=== PATIENT | female | born 1955 | race Caucasian/White ===

== ENCOUNTER 2024-03-20 12:25 | Outpatient (CLI) | payer MEDICARE, MEDICAID, SELFPAY ==
[2024-03-20 13:33] LABS: Thyroid Stimulating Hormone 0.488 uIU/mL (0.465-4.680)
[2024-03-20 14:05] LABS: Hemoglobin A1C 6.8 % (<5.7)
[2024-03-20 14:29] LABS: Free T4 Free Thyroxine 1.24 ng/dL (0.78-2.19)
[2024-03-24 06:49] LABS: Triiodothyronine T3 Free 2.8 pg/mL (2.3-4.2)
== END 2024-03-20 12:26 | disposition home or self-care (01) ==
LOC: ANHLAB 12:34
PROVIDERS: PCP Physician Assistant; Visit Provider Physician Assistant
DX: E03.9 Hypothyroidism, unspecified (principal); E11.9 Type 2 diabetes mellitus without complications
CPT/HCPCS: 36415; 83036; 84439; 84443; 84481

== ENCOUNTER 2024-09-16 09:23 | Outpatient (CLI) | payer MEDICARE, MEDICAID, SELFPAY ==
--- NOTE | ~2024-09-16 | DEXA_ITS ---
Bone Density Report Name: COLLEEN FALLON Age: 69 Sex: Female Ethnicity: White Date of : 1955 Indication: postmenopausal; screening for osteoporosis; rheumatoid arthritis; Referring Provider: SHANAE, REESE Rogers Study: Bone densitometry was performed. Exam Date: September 16, 2024 Accession number: [id number] Bone Density: Region BMD T-score Z-score Classification AP Spine(L1-L4) 0.818 -2.1 -0.2 Osteopenia Femoral Neck (Left) 0.626 -2.0 -0.4 Osteopenia Total Hip (Left) 0.885 -0.5 0.9 Normal Femoral Neck (Right) 0.593 -2.3 -0.7 Osteopenia Total Hip (Right) 0.865 -0.6 0.7 Normal Total Hip Mean 0.875 -0.6 0.8 Normal World Health Organization criteria for BMD impression classify patients as: Normal (T-score at or above -1.0), Osteopenia (T-score between -1.0 and -2.5), or Osteoporosis (T-score at or below -2.5). 10-year Fracture Risk(1): Major Osteoporotic Fracture 15% Hip Fracture 3.0% Reported Risk Factors: [place] (), Neck BMD=0.593, BMI=33.7, rheumatoid arthritis (1) FRAX(R) Version 3.08. Fracture probability calculated for an untreated patient. Fracture probability may be lower if the patient has received treatment. Clinical Information Provided by Patient: Has rheumatoid arthritis Has used the following medications: HRT (i.e. estrogen/hormone therapy), Vitamin D Has the following medical conditions: copd Patient maximum height was 64 Menopause Age: 47 No regular weight bearing exercise Drinks caffeinated beverages Onset of menses at age 15 Number of children 3 Impression: The patient has low bone mass, based on the Right Femoral Neck T-score. The patient has an estimated ten-year risk of hip fracture of 3% and an estimated ten-year risk of major fracture of 15%, based on the WHO FRAX algorithm. Discussion: BONE DENSITY IS LOW AT ONE OR MORE SKELETAL SITES. THE PATIENT'S BMD AND CLINICAL RISK FACTORS CONTRIBUTE TO THIS PATIENT'S INCREASED RISK OF FRACTURE. This patient's lowest T-score is low at one or more skeletal sites. It meets the World Health Organization's (WHO) criteria for ?low bone mass? (T-score between -1.0 and -2.5). The patient's 10-year risk of hip fracture as calculated by FRAX exceeds the threshold where pharmacological therapy is recommended by the National Osteoporosis Foundation (NOF). However, all treatment decisions require clinical judgment and consideration of individual patient factors, including patient preferences, comorbidities, previous drug use, risk factors not captured in the FRAX model (e.g., frailty, falls, vitamin D deficiency, increased bone turnover, interval significant decline in bone density) and possible under or overestimation of fracture risk by FRAX. The patient should follow a healthful lifestyle (good nutrition with adequate calcium and vitamin D, and appropriate weight-bearing exercise). Follow-Up: Consider a repeat BMD and Vertebral Fracture Assessment (VFA) exam in 2 years or sooner if medically necessary, to reassess this patient's status. Reported by: ROBERT on 09/16/2024 10:04:00 AM. Reviewed, dictated and finalized at location A.
--- NOTE | ~2024-09-16 | MM_ITS ---
EXAMINATION: MM screening elizabeth BI w molly HISTORY: Screening TECHNIQUE: Craniocaudal and mediolateral oblique 3-D tomosynthesis images were obtained and synthetic 2-D images were generated. CAD analysis was submitted and interpreted. COMPARISON: No prior mammogram is available for comparison at this institution. BREAST PARENCHYMAL COMPOSITION: Not Dense: The breasts are almost entirely fatty. FINDINGS: There is no evidence of suspicious mass, calcification, or architectural distortion to sugg est malignancy in either breast. There has been no suspicious interval change. IMPRESSION: 1. No mammographic evidence of malignancy. 2. Recommend routine screening mammography in one year. BI-RADS Category 1: Negative Reviewed, dictated and finalized at location A.
--- OUTSIDE RECORDS SUMMARY | 2024-09-16 10:15 | XMS_ITS | Clinical Summary ---
Author Organization [facility] Address [address] [place] [address] Care Team Providers Care Traveling Crane Operator Name Role Phone Octavio Heath DO Unavailable [phone] Gilbert Greenwood Primary Care Provider + August Grimes MD Unavailable [phone] Jamilah Sapp MD Unavailable [phone] Martin Gallardo MD Unavailable [phone] Allergies Active Allergy Reactions Criticality Noted Date Comments Ciprofloxacin Dizziness High 07/11/2022 Medications baclofen (LIORESAL) 10 mg tabletIndicat ions:MGUS (monoclonal gammopathy of unknown significance) 11/10/19 21 Active metFORMIN (GLUCOPHAGE) 500 mg tabletIndicat ions:MGUS (monoclonal gammopathy of unknown significance) metformin 500 mg tablet Active levothyroxine (SYNTHROID) 112 mcg tabletIndicat ions:MGUS (monoclonal gammopathy of unknown significance) levothyroxine 112 mcg tablet Active losartan (COZAAR) 100 mg tabletIndicat ions:MGUS (monoclonal gammopathy of unknown significance) losartan 100 mg tablet Active hydroCHLOROth iazide (MICROZIDE) 12.5 mg capsuleIndica tions:MGUS (monoclonal gammopathy of unknown significance) hydrochlorothiazide 12.5 mg capsule Active calcium carbonate-vit curry D3 (CALTRATE 600 + D) 1500 mg (600 mg elemental) -400 units per tabletIndicat ions:MGUS (monoclonal gammopathy of unknown significance) Calcium with Vitamin D 600 mg (1,500 mg)-400 unit tablet Active multivitamin tabletIndicat ions:MGUS (monoclonal gammopathy of unknown significance) Tab-A-Nitza tablet Active atorvastatin (LIPITOR) 10 mg tabletIndicat ions:MGUS (monoclonal gammopathy of unknown significance) Take 1 tablet (10 mg total) by mouth nightly 11/16/19 21 Active alcohol swabs pads, medicatedIndi cations:MGUS (monoclonal gammopathy of unknown significance) BD Alcohol Swabs Active cyclobenzapri ne (FLEXERIL) 10 mg tabletIndicat ions:MGUS (monoclonal gammopathy of unknown significance) cyclobenzaprine 10 mg tablet 04/01/18 70 Active HYDROcodone-a cetaminophen (NORCO) 5-325 mg per tabletIndicat ions:MGUS (monoclonal gammopathy of unknown significance) hydrocodone 5 mg-acetaminophen 325 mg tablet 04/01/18 70 Active OneTouch Delica Plus Lancet 33 gauge miscIndicatio ns:MGUS (monoclonal gammopathy of unknown significance) USE 1 LANCET TO CHECK GLUCOSE TWICE DAILY 10/03/19 21 Active latanoprost (XALATAN) 0.005 % ophthalmic solutionIndic ations:MGUS (monoclonal gammopathy of unknown significance) latanoprost 0.005 % eye drops INSTILL 1 DROP INTO EACH EYE AT BEDTIME DIRECTED Active nystatin creamIndicati ons:MGUS (monoclonal gammopathy of unknown significance) nystatin 100,000 unit/gram topical cream Active predniSONE (DELTASONE) 10 mg tabletIndicat ions:MGUS (monoclonal gammopathy of unknown significance) prednisone 10 mg tablet Active triamcinolone (KENALOG) 0.1 % creamIndicati ons:MGUS (monoclonal gammopathy of unknown significance) as needed Active ProAir HFA 90 mcg/actuation inhalerIndica tions:MGUS (monoclonal gammopathy of unknown significance) 12/16/19 21 Active busPIRone (BUSPAR) 5 mg tabletIndicat ions:MGUS (monoclonal gammopathy of unknown significance) 12/09/19 21 Active Tab-A-Nitza 400 mcg tabletIndicat ions:MGUS (monoclonal gammopathy of unknown significance) Take 1 tablet by mouth daily 12/14/19 21 Active medroxyPROGES TERone (PROVERA) 2.5 mg tabletIndicat ions:MGUS (monoclonal gammopathy of unknown significance) medroxyprogesterone 2.5 mg tablet Active estrogens, conjugated, (Premarin) vaginal creamIndicati ons:MGUS (monoclonal gammopathy of unknown significance) 0.5 g daily as needed Active estradioL (ESTRACE) 0.5 mg tabletIndicat ions:MGUS (monoclonal gammopathy of unknown significance) estradiol 0.5 mg tablet Active blood glucose diagnostic (OneTouch Verio test strips) stripIndicati ons:MGUS (monoclonal gammopathy of unknown significance) OneTouch Verio test strips CHECK GLUCOSE TWICE DAILY Active lancets 33 gauge miscIndicatio ns:MGUS (monoclonal gammopathy of unknown significance) OneTouch Delica Plus Lancet 33 gauge Active omega-3 fatty acids (LOVAZA) 1 gram capsule TAKE 2 CAPSULES BY MOUTH TWICE DAILY AFTER A MEAL Active Mounjaro 2.5 mg/0.5 mL pen injector injectionIndi cations:MGUS (monoclonal gammopathy of unknown significance) Inject 0.5 mL (2.5 mg total) under the skin 06/10/19 25 Active Breztri Aerosphere 160-9-4.8 mcg/actuation inhalerIndica tions:MGUS (monoclonal gammopathy of unknown significance) 04/09/19 25 Active Active Problems Problem Noted Date Diagnosed Date Anxiety 09/24/2022 Glaucoma of both eyes 09/24/2022 Sleep apnea 03/21/2022 Stage 3a chronic kidney disease 11/30/2020 MGUS (monoclonal gammopathy of unknown significa nce) 11/30/2020 Neuropathy 03/10/2019 Hepatomegaly 10/26/2018 Graves disease 12/05/2017 Postablative hypothyroidism 12/05/2017 Type 2 diabetes mellitus wit h diabetic nephropathy, without long-term current use of insulin 12/05/2017 Mass of thyroid gland 01/21/2017 Chronic obstructive pulmonary disease 08/12/2015 Hypertension 08/12/2015 Thyroid activity decreased 05/14/2014 Encounters Date Type Department Care Team Description 06/30/2024 11:00 AM CDT Office Visit [facility] Trans[facility] [address] [place] [address] Dru Ying DNP MGUS (monoclonal gammopathy of unknown significance) (Primary Dx) 06/30/2024 10:30 AM CDT Lab [facility] [address] [place] [address] MGUS (monoclonal gammopathy of unknown significance) from Last 3 Months Immunizations Immunization Administration Dates Next Due Influenza, Quadrivalent, Jayshree l Culture-based MDCK, Preservative Free, Antibiotic Free, Intramuscular 01/04/2021 Influenza, Quadrivalent, Rec ombinant, Egg Free, Preservative Free, Intramuscular 12/17/2019 Influenza, Quadrivalent, Spl it, Intramuscular 12/07/2019,12/25/2018,01/21/2017,01/18,12/27/2014 Influenza, Quadrivalent, Spl it, Preservative Free, Intramuscular 01/21/2018 Influenza, Trivalent, IM (MDV) 03/19/2014 Tdap 06/09/2019 Surgical History Surgery Date Site/Laterality Comments VA TUBOTUBAL ANASTATOMOSIS Oviductal Surgery Tubotubal Anastomosis - (Added by TW Conv) TUBAL LIGATION 04/01/1985 - 03/31/1986 Medical History Medical History Date Comments Hypertension Thyroid disease Chronic kidney disease Diabetes mellitus (HCC) Family History Medical History Relation Name Comments Lung cancer Father Family history of lung cancer - (Added by TW Conv) Diabetes Mother Family history of diabetes mellitus - (Added by TW Conv) Heart disease Mother Family history of cardiac disorder - (Added by TW Conv) Hypertension Mother Family history of hypertension - (Added by TW Conv) Relation Name Status Comments Father Mother Social History Tobacco Use Types Packs/Day Years Used Date Smoking Tobacco: Former Smokeless Tobacco: Never Comments Unknown Sex and Gender Information Value Date Recorded Sex Assigned at Not on file Legal Sex 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 Gender Identity Not on file Sexual Orientation Not on file Obstetrics History Last Filed Vital Signs Vital Sign Reading Time Taken Comments Blood Pressure 131/82 06/30/2024 10:49 AM CDT Pulse 78 06/30/2024 10:49 AM CDT Temperature 36.5 C (97.7 F) 06/30/2024 10:49 AM CDT Respiratory Rate 18 06/30/2024 10:49 AM CDT Oxygen Saturation 100% 06/30/2024 10:49 AM CDT Inhaled Oxygen Concentration - - Weight 92.3 kg (203 lb 6.4 oz) 06/30/2024 10:49 AM CDT Height 162.6 cm (5' 4) 01/10/2022 11:30 AM CDT Body Mass Index 34.91 01/10/2022 11:30 AM CDT Plan of Treatment Health Maintenance Due Date Last Done Comments Albumin Creatinine Ratio, Urine 1955 Colon Cancer Screening-Colonoscopy 1955 Depression Screening 1955 Fall Risk Assessment 1955 Hemoglobin A1C 1955 Hepatitis C Screening 1955 Dilated Eye Exam 1955 Foot Exam 1955 Lipid Panel 1955 Hepatitis B Screening 1975 Pneumococcal vaccine 65+ (1 of 2 - PCV) 1976 Zoster Vaccine (1 of 2) 2007 Well Visit 65+ 2022 Osteoporosis Screening-Bone Density Scan 02/01/2023 02/01/2021 Covid-19 Vaccine (2 - 2023-2 5 season) 2023 07/03/2020 Breast Cancer Screening-Mammogram 06/10/2024 06/11/2023, 05/11/2022, 02/01/2021, Additional history exists Influenza Vaccine (Season Ended) 2024 01/04/2021, 12/17/2019, 12/07/2019, Additional history exists eGFR 06/30/2025 06/30/2024, 04/05/2023, 01/09/2023, Additional history exists DTaP/Tdap/Td Vaccine (2 - Td or Tdap) 06/08/2029 06/09/2019 Procedures Procedure Name Priority Date/Time Associated Diagnosis Comments EGFR Routine 06/30/2024 10:39 AM CDT MGUS (monoclonal gammopathy of unknown significance) DIFFERENTIAL AUTO Routine 06/30/2024 10: 39 AM CDT MGUS (monoclonal gammopathy of unknown significance) CBC WITH AUTO DIFFERENTIAL Routine 06/30/2024 10:39 AM CDT MGUS (monoclonal gammopathy of unknown significance) COMPREHENSIVE METABOLIC PANEL Routine 06/30/2024 10:39 AM CDT MGUS (monoclonal gammopathy of unknown significance) IGA Routine 06/30/2024 10:39 AM CDT MGUS (monoclonal gammopathy of unknown significance) IGG Routine 06/30/2024 10:39 AM CDT MGUS (monoclonal gammopathy of unknown significance) IGM Routine 06/30/2024 10:39 AM CDT MGUS (monoclonal gammopathy of unknown significance) IMMUNOGLOBULIN FREE LIGHT CHAINS Routine 06/30/2024 10:39 AM CDT MGUS (monoclonal gammopathy of unknown significance) LACTATE DEHYDROGENASE Routine 06/30/2024 10:39 AM CDT MGUS (monoclonal gammopathy of unknown significance) PROTEIN ELECTROPHORESIS, WITH REFLEX, SERUM Routine 06/30/2024 10:39 AM CDT MGUS (monoclonal gammopathy of unknown significance) CLINICAL PATHOLOGY REPORT Routine 06/30/2024 10:39 AM CDT from Last 3 Months Results * (ABNORMAL) eGFR (06/30/2024 10:39 AM CDT) eGFR 52(L) >=60 mL/min/1. 73 m2 Comment: Interpretive Data Reference Interval Normal >/= 90 mL/min/1.73m2 Mildly decreased* 60 - 89 mL/min/1.73m2 Mildly to moderately decreased 45 - 59 mL/min/1.73m2 Moderately to severely decreased 30 - 44 mL/min/1.73m2 Severely decreased 15 - 29 mL/min/1.73m2 Kidney Failure < 15 mL/min/1.73m2 *Relative to young adult level Estimated glomerular filtration rate is determined by the 2020 CKD-EPI equation recommended by the National Kidney Foundation (A Unifying Approach to GFR Estimation: Recommendations of the NKF-ASK Task Force on Reassessing the Inclusion of Race in Diagnosing Kidney Disease, JASN 202). The CKD-EPI equation should not be used for patients with unstable renal function and has not been validated in children and those over 70. Current interpretive data was last reviewed 2021. Testing performed by: [facility] [place] [address] Blood 06/30/2024 10:3 9 AM CDT 06/30/2024 10:39 AM CDT us Martin Gallardo MD LAB BLOOD ORDERABLES Fin al Result [facility] [address] [address] Department [place] [address] * Differential, auto (06/30/2024 10:39 AM CDT) Neutrophil abs 5.19 1.50 - 6.50 K/cumm Comment:Testing performed by : [facility] [place] [address] Imm gran abs 0.00 0.00 - 0.10 K/cumm CERNER Comment:Testing performed by : [facility] [place] [address] Lymphocyte abs 2.83 0.80 - 3.30 K/cumm CERNER Comment:Testing performed by : [facility] [place] [address] Monocyte abs 0.50 0.20 - 0.80 K/cumm CERNER Comment:Testing performed by : [facility] [place] [address] Eosinophil abs 0.50 0.00 - 0.50 K/cumm CERNER Comment:Testing performed by : [facility] [place] [address] Basophil abs 0.00 0.00 - 0.10 K/cumm CERNER Comment:Testing performed by : [facility] [place] [address] Neutrophil pct 57.1 % CERNER Comment: Interpretive Data Percent cell count reference ranges are not reported, since discordance with absolute values may lead to misinterpretation of CBC data. Current Interpretive Data was last revised on 2017. Testing performed by: [facility] [place] [address] Imm gran pct 0.4 % CERNER Comment: Interpretive Data Percent cell count reference ranges are not reported, since discordance with absolute values may lead to misinterpretation of CBC data. Current Interpretive Data was last revised on 2017. Testing performed by: [facility] [place] [address] Lymphocyte pct 31.1 % CERKAYKAY Comment: Interpretive Data Percent cell count reference ranges are not reported, since discordance with absolute values may lead to misinterpretation of CBC data. Current Interpretive Data was last revised on 2017. Testing performed by: [facility] [place] [address] Monocyte pct 5.3 % CERKAYKAY Comment: Interpretive Data Percent cell count reference ranges are not reported, since discordance with absolute values may lead to misinterpretation of CBC data. Current Interpretive Data was last revised on 2017. Testing performed by: [facility] [place] [address] Eosinophil pct 5.8 % CERKAYKAY Comment: Interpretive Data Percent cell count reference ranges are not reported, since discordance with absolute values may lead to misinterpretation of CBC data. Current Interpretive Data was last revised on 2017. Testing performed by: [facility] [place] [address] Basophil pct 0.3 % CERKAYKAY Comment: Interpretive Data Percent cell count reference ranges are not reported, since discordance with absolute values may lead to misinterpretation of CBC data. Current Interpretive Data was last revised on 2017. Testing performed by: [facility] [place] [address] Blood 06/30/2024 10:3 9 AM CDT 06/30/2024 10:39 AM CDT us Martin Gallardo MD LAB BLOOD ORDERABLES Fin al Result [facility] [address] [address] Department [place] [address] * (ABNORMAL) Immunoglobulin free light chains (06/30/2024 10:39 AM CDT) [place]/Lambda ratio 0.50 0.26 - 1.65 [place] free light chain 2.44(H) 0.33 - 1.94 mg/dL S[facility] Comment: Interpretive Data The Michael Ig [place] FLC assay procedure was used. Results from different manufacturers or methods may not be comparable. Serial testing should be performed using the same method. Lambda free light chain 5.40(H) 0.57 - 2.63 mg/dL [facility] Comment: Interpretive Data The Michael Ig Lambda FLC assay procedure was used. Results from different manufacturers or methods may not be comparable. Serial testing should be performed using the same method. Blood 06/30/2024 10:3 9 AM CDT 06/30/2024 11:47 AM CDT Martin Gallardo MD LAB BLOOD ORDERABLES Fin al Result [facility] [address] [address] Department of Laboratories [place], [place] [id number] * CBC with auto differential (06/30/2024 10:39 AM CDT) WBC 9.10 3.80 - 9.90 K/cumm Comment:Testing performed by : [facility] [place] [address] Hgb 14.6 11.9 - 15.5 g/dL S[facility]H Comment:Testing performed by : [facility] [place] [address] Hct 44.5 35.6 - 45.5 % SINGH Comment:Testing performed by : [facility] [place] [address] Plt 269 150 - 400 K/cumm CERKAYKAY Comment:Testing performed by : [facility] [place] [address] MPV 10.5 9.1 - 12.3 fL [facility] Comment:Testing performed by : [facility] [place] [address] RBC 4.98 3.90 - 5.20 M/cumm SINGH Comment:Testing performed by : [facility] [place] [address] MCV 89.4 81.3 - 96.4 fL [facility] Comment:Testing performed by : [facility] [place] [address] MCH 29.3 27.1 - 33.3 pg [facility] Comment:Testing performed by : [facility] [place] [address] MCHC 32.8 32.3 - 35.7 g/dL [facility] Comment:Testing performed by : [facility] [place] [address] RDW CV 14.4 11.1 - 14.9 % [facility] Comment:Testing performed by : [facility] [place] [address] RDW SD 47.1 35.7 - 48.1 fL [facility] Comment:Testing performed by : [facility] [place] [address] NRBC abs 0.00 0.00 - 0.01 K/cumm [facility] Comment:Testing performed by : [facility] [place] [address] ANC Prelim 5.19 1.50 - 6.50 K/cumm [facility] Comment: Interpretive Data The rapid ANC is a preliminary automated count and may vary from the final ANC (Neut Abs) reported in the WBC differential that follows. Current interpretive data was last revised 2024. Testing performed by: [facility] [place] [address] Blood 06/30/2024 10:3 9 AM CDT 06/30/2024 10:39 AM CDT us Martin Gallardo MD LAB BLOOD ORDERABLES Trever miguel angel Result - Final [facility] [address] [address] Department [place] [address] * (ABNORMAL) Protein electrophoresis with reflex, serum with interpretation (06/30/2024 10:39 AM CDT) Protein, sr 7.8 6.2 - 8.2 g/dL Albumin 4.6 3.2 - 5.0 g/dL C[facility]AYKAY Alpha-1 globulin 0.3 0.2 - 0.4 g/dL [facility] Alpha-2 globulin 0.9 0.5 - 1.0 g/dL C[facility] CH Beta-1 globulin 0.5 0.3 - 0.6 g/dL CERNER CH Beta-2 globulin 0.4 0.2 - 0.6 g/dL C[facility] CH Gamma globulin 1.1 0.5 - 1.7 g/dL C[facility] CH Rstr Pk Gamma 0.5(H) 0.0 - 0.0 g/dL [facility] CH SPEP interp See Cl Path Rpt C[facility] CH Blood 06/30/2024 10:3 9 AM CDT 06/30/2024 11:47 AM CDT Martin Gallardo MD LAB BLOOD ORDERABLES Fin al Result Performing Organization Address City/[facility] Co de Phone Number [facility] [address] [address] [place] [address] * Lactate dehydrogenase (LD) (06/30/2024 10:39 AM CDT) Lactate dehydrogenase (LDH) 162 100 - 250 Units/L Comment:Testing performed by : [facility] at [facility], [place] [address] Blood 06/30/2024 10:3 9 AM CDT 06/30/2024 10:39 AM CDT Martin Gallardo MD LAB BLOOD ORDERABLES Fin al Result Performing Organization Address City/[facility]/ZIP Co de Phone Number [facility] [address] [address] Department [place] [address] * IgA (06/30/2024 10:39 AM CDT) Immunoglobulin A 223 70 - 400 mg/dL Blood 06/30/2024 10:3 9 AM CDT 06/30/2024 11:47 AM CDT Martin Gallardo MD LAB BLOOD ORDERABLES Fin al Result [facility] [address] [address] [facility] [place] [address] * IgM (06/30/2024 10:39 AM CDT) Pathologist [facility] Immunoglobulin M 89 40 - 150 mg/dL Blood 06/30/2024 10:3 9 AM CDT 06/30/2024 11:47 AM CDT Martin Gallardo MD LAB BLOOD ORDERABLES Fin al Result Performing Organization Address [facility] de Phone Number [facility] [address] [address] [facility] [place] [address] * IgG (06/30/2024 10:39 AM CDT) Pathologist [facility] Immunoglobulin G 1,106 700 - 1,600 mg/dL Blood 06/30/2024 10:3 9 AM CDT 06/30/2024 11:47 AM CDT Martin Gallardo MD LAB BLOOD ORDERABLES Fin al Result Performing Organization Address [facility] Phone Number [facility] [address] [address] [facility] [place] [address] * (ABNORMAL) Comprehensive metabolic panel (06/30/2024 10:39 AM CDT) [facility] Sodium 138 135 - 145 mmol/L Comment:Testing performed by : [facility] [place] [address] Potassium, pl 3.9 3.3 - 4.9 mmol/L C[facility]ER CH Comment:Testing performed by : [facility] [place] [address] Chloride 101 97 - 110 mmol/L CERNER CH Comment:Testing performed by : [facility] [place] [address] CO2 25 22 - 32 mmol/L CERNER CH Comment:Testing performed by : [facility] [place] [address] Anion gap 12 2 - 15 mmol/L CERNER CH Comment:Testing performed by : [facility] [place] [address] BUN 19 6 - 25 mg/dL C[facility]ER CH Comment:Testing performed by : [facility] [place] [address] Creatinine 1.16(H) 0.60 - 1.10 mg/dL C[facility] CH Comment:Testing performed by : [facility] [place] [address] Glucose 142 70 - 199 mg/dL C[facility] CH Comment: Interpretive Data Fasting glucose >/= 126 mg/dl is diagnostic for diabetes. Fasting is defined as no caloric intake for at least 8 hours. Fasting glucose between 100 mg/dl to 125 mg/dl is diagnostic of prediabetes. In a patient with classic symptoms of hyperglycemia or hyperglycemic crisis, a random glucose >/= 200 mg/dl is diagnostic for diabetes. In the absence of unequivocal hyperglycemia, results should be confirmed by repeat testing. The classification and Diagnosis of Diabetes Diabetes Care 202; 46: S19-S40. Current interpretive data was last revised 2022. Testing performed by: [facility] [place] [address] Calcium 9.5 8.5 - 10.3 mg/dL CERNER CH Comment:Testing performed by : [facility] [place] [address] Bilirubin, total 0.5 0.1 - 1.2 mg/dL CERNER CH Comment:Testing performed by : [facility] [place] [address] Protein, pl 7.8 6.5 - 8.5 g/dL CERNER CH Comment:Testing performed by : [facility] [place] [address] Albumin 4.6 3.5 - 5.0 g/dL CERNER CH Comment:Testing performed by : [facility] [place] [address] Alk phos 112 40 - 130 Units/L CERNER CH Comment:Testing performed by : [facility] [place] [address] ALT 22 7 - 45 Units/L C[facility]ER CH Comment:Testing performed by : [facility] [place] [address] AST 25 10 - 45 Units/L C[facility]ER CH Comment:Testing performed by : [facility] [place] [address] Blood 06/30/2024 10:3 9 AM CDT 06/30/2024 10:39 AM CDT us Martin Gallardo MD LAB BLOOD ORDERABLES Fin al Result Performing Organization Address City/State/[facility] Co de Phone Number [facility] [address] [place] [address] * Clinical pathology report (06/30/2024 10:39 AM CDT) Miscellaneous 06/30/2024 10: 39 AM CDT 07/02/2024 8:52 AM CDT Narrative 07/03/2024 4:10 PM CDT EPIC results best viewed via link to PDF [facility] Department of Pathology [address] [place] [id number] Final Report Note to Patients: This report may contain a detailed description of human tissue sent by a health care provider to the laboratory for pathologic evaluation. The content of this report is essential for diagnosis and may provide important critical findings. This information may be unfamiliar to patients to review without a medical professional present. It is advised that the patient review this report in the presence of a health care provider who can answer questions and explain the details. Patient Name: DINORA DARNELL [address]: [address] [place] [address] Gender: F : 1955 (Age: 69) Service: Location: N : [id number] [facility] #: [id number] Patient Type: Ancillary Taken: 06/30/2024 Received: 07/02/2024 Accessioned: 07/02/2024 Physician(s): Martin Glalardo M.D. Specimen(s) Received A: Blood (serum) Serum Protein Electrophoresis with Immunofixation/ImmunotypingReported:07/03/2024 Interpretation: Serum Protein Electrophoresis: 0.5 g/dl paraprotein. Serum Protein Immunofixation: IgG lambda. Comment: Serum Protein Electrophoresis: A 0.5 g/dl paraprotein is identified. Serum Protein Immunofixation: Examination of G, A and M heavy chains as well as kappa and lambda light chains reveals an IgG lambda band. See Epic and/or separate report for protein fraction table. Gene Aguilar MD PhDReport Electronically Reviewed and Signed Out By Gene Aguilar MD PhD 07/03/2024 16:07:12 The performance characteristics of some immunohistochemical stains, fluorescence in-situ hybridization tests and immunophenotyping by flow cytometry cited in this report (if any) were determined by the Surgical Pathology Department at [facility] as part of an ongoing software quality analyst program and in compliance with federally mandated regulations drawn from the Clinical Laboratory Improvement Act of 1988 (CLIA '88). Some of these tests rely on the use of analyte specific reagents and are subject to specific labeling requirements by the US Food and Drug Administration. Such diagnostic tests may only be performed in a facility that is certified by the Department of Health and Human Services as a high complexity laboratory under CLIA '88. The FDA has determined that such clearance or approval is not necessary. This test is used for clinical purposes. It should not be regarded as investigational or for research. Nevertheless, federal rules concerning the medical use of analyte specific reagents require that the following disclaimer be attached to the report: This test was developed and its performance characteristics determined by the Surgical Pathology Department [facility]. It has not been cleared or approved by the U. S. Food and Drug Administration. REPORT IMAGES AND SCANNED DOCUMENTS, IF INCLUDED, ONLY VIEWABLE IN PDF VERSION OF REPORTe o Martin Gallardo MD LAB PATHOLOGY ORDERABLES Final Result from Last 3 Months Insurance IDPA [facility] MEDICARE ADVANTAGE [id number] [place] [address] UHC MEDICARE ADVANTAGE [facility] Care Teams Traveling Crane Operator Relationship Specialty Start Date End Date Gilbert Greenwood PA [address] [place] [address] PCP - General Internal Medicine 11/18/20 Octavio Heath DO Referring Physician Nephrology 11/18/20 August Grimes MD [address] [place] [address] Consulting Physician Endocrinology 11/30/20 Jamilah Sapp MD [address] [place] [address] Referring Physician Gastroenterology 07/11/22 Martin Gallardo MD [address] [facility] [address] [place] [address] Consulting Physician Medical Oncology 07/01/23
--- OUTSIDE RECORDS SUMMARY | 2024-09-16 10:15 | XMS_ITS | Referral Summary ---
Author Organization [facility] Address [facility] [place] [address] Care Team Providers Care Claims Configuration Analyst Name Role Phone Octavio Heath DO Unavailable [phone] Gilbert Greenwood Primary Care Provider + August Grimes MD Unavailable [phone] Jamilah Sapp MD Unavailable [phone] Martin Gallardo MD Unavailable [phone] Encounters Date Type Department Care Team Description 06/30/2024 11:00 AM CDT Office Visit [facility] [address] [place] [id number] Dru Ying DNP MGUS (monoclonal gammopathy of unknown significance) (Primary Dx) 06/30/2024 10:30 AM CDT Lab [facility] [address] [place] [address] MGUS (monoclonal gammopathy of unknown significance) from Last 3 Months Allergies Active Allergy Reactions Criticality Noted Date [...] tions:MGUS (monoclonal gammopathy of unknown significance) 12/16/19 Active busPIRone (BUSPAR) 5 mg tabletIndicat ions:MGUS (monoclonal gammopathy of unknown significance) 12/09/19 Active Tab-A-Nitza 400 mcg tabletIndicat ions:MGUS (monoclonal gammopathy of unknown significance) Take 1 tablet by mouth daily 12/14/19 Active medroxyPROGES TERone (PROVERA) 2.5 mg tabletIndicat [...] (2.5 mg total) under the skin 06/10/19 Active Breztri Aerosphere 160-9-4.8 mcg/actuation inhalerIndica tions:MGUS (monoclonal gammopathy of unknown significance) 04/09/19 Active Active Problems Problem Noted Date Diagnosed [...] 08/12/2015 Hypertension 08/12/2015 Thyroid activity decreased 05/14/2014 Immunizations Immunization Administration Dates Next Due Influenza, Quadrivalent, Jayshree l Culture-based MDCK, Preservative Free, Antibiotic Free, Intramuscular 01/04/2021 Influenza, Quadrivalent, Rec ombinant, Egg Free, Preservative Free, Intramuscular 12/17/2019 Influenza, Quadrivalent, Spl it, Intramuscular 12/07/2019,12/25/2018,01/21/2017,01/18,12/27/2014 Influenza, Quadrivalent, Spl it, Preservative Free, Intramuscular 01/21/2018 Influenza, Trivalent, IM (MDV) 03/19/2014 Tdap 06/09/2019 Social History Tobacco Use Types Packs/Day Years Used Date Smoking Tobacco: Former Smokeless Tobacco: Never Comments Unknown Sex and Gender Information Value Date Recorded Sex Assigned at Not on file 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 Testing performed by: [facility] [place] [address] Blood 06/30/2024 10:3 9 AM CDT 06/30/2024 10:39 AM CDT us Martin Gallardo MD LAB BLOOD ORDERABLES Fin al Result SINGH HURST [address] Department [place] [address] * Differential, auto (06/30/2024 10:39 AM CDT) Neutrophil abs 5.19 1.50 - 6.50 K/cumm Comment:Testing performed by : [facility] [place] [address] Imm gran abs 0.00 0.00 - 0.10 K/cumm CERKAYKAY Comment:Testing performed by : [facility] [place] [address] Lymphocyte abs 2.83 0.80 - 3.30 K/cumm SINGH Comment:Testing performed by : [facility] [place] [address] Monocyte abs 0.50 0.20 - 0.80 K/cumm CERKAKYAY Comment:Testing performed by : [facility] [place] [address] Eosinophil abs 0.50 0.00 - 0.50 K/cumm SINGH Comment:Testing performed by : [facility] [place] [address] Basophil abs 0.00 0.00 - 0.10 K/cumm SINGH Comment:Testing performed by : [facility] [place] [address] Neutrophil pct 57.1 % SINGH Comment: Interpretive Data Percent cell count reference ranges are not reported, since discordance with absolute values may lead to misinterpretation of CBC data. Current Interpretive Data was last revised on 2017. Testing performed by: [facility] [place] [address] Imm gran pct 0.4 % CERNER Comment: Interpretive Data Percent cell count reference ranges are not reported, since discordance with absolute values may lead to misinterpretation of CBC data. Current Interpretive Data was last revised on 2017. Testing performed by: [facility] [place] [address] Lymphocyte pct 31.1 % CERNER Comment: Interpretive Data Percent cell count reference ranges are not reported, since discordance with absolute values may lead to misinterpretation of CBC data. Current Interpretive Data was last revised on 2017. Testing performed by: [facility] [place] [address] Monocyte pct 5.3 % CERNER Comment: Interpretive Data Percent cell count reference ranges are not reported, since discordance with absolute values may lead to misinterpretation of CBC data. Current Interpretive Data was last revised on 2017. Testing performed by: [facility] [place] [address] Eosinophil pct 5.8 % CERNER Comment: Interpretive Data Percent cell count reference ranges are not reported, since discordance with absolute values may lead to misinterpretation of CBC data. Current Interpretive Data was last revised on 2017. Testing performed by: [facility] [place] [address] Basophil pct 0.3 % CERNER Comment: Interpretive Data Percent cell count reference ranges are not reported, since discordance with absolute values may lead to misinterpretation of CBC data. Current Interpretive Data was last revised on 2017. Testing performed by: [facility] [place] [address] Blood 06/30/2024 10:3 9 AM CDT 06/30/2024 10:39 AM CDT us Martin Gallardo MD LAB BLOOD ORDERABLES Fin al Result SINGH HURST [address] [address] Department [place] [address] * (ABNORMAL) Immunoglobulin free light chains (06/30/2024 10:39 AM CDT) [facility] Tamaroa/Lambda ratio 0.50 0.26 - 1.65 Tamaroa free light chain 2.44(H) 0.33 - 1.94 mg/dL SINGH HURST Comment: Interpretive Data The Michael Ig Tamaroa FLC assay procedure was used. Results from different manufacturers or methods may not be comparable. Serial testing should be performed using the same method. Lambda free light chain 5.40(H) 0.57 - 2.63 mg/dL SINGH HURST Comment: Interpretive Data The Michael Ig Lambda FLC assay procedure was used. Results from different manufacturers or methods may not be comparable. Serial testing should be performed using the same method. Blood 06/30/2024 10:3 9 AM CDT 06/30/2024 11:47 AM CDT Martin Gallardo MD LAB BLOOD ORDERABLES Fin al Result SINGH HURST [address] [address] Department [place] [address] * CBC with auto differential (06/30/2024 10:39 AM CDT) [facility] WBC 9.10 3.80 - 9.90 K/cumm Comment:Testing performed by : [facility] [place] [address] Hgb 14.6 11.9 - 15.5 g/dL SINGH HURST Comment:Testing performed by : [facility] [place] [address] Hct 44.5 35.6 - 45.5 % SINGH HURST Comment:Testing performed by : [facility] [place] [address] Plt 269 150 - 400 K/cumm SINGH HURST Comment:Testing performed by : [facility] [place] [address] MPV 10.5 9.1 - 12.3 fL SINGH HURST Comment:Testing performed by : [facility] [place] [address] RBC 4.98 3.90 - 5.20 M/cumm SINGH Comment:Testing performed by : [facility] [place] [address] MCV 89.4 81.3 - 96.4 fL SINGH Comment:Testing performed by : [facility] [place] [address] MCH 29.3 27.1 - 33.3 pg SINGH CH Comment:Testing performed by : [facility] [place] [address] MCHC 32.8 32.3 - 35.7 g/dL SINGH CH Comment:Testing performed by : [facility] [place] [address] RDW CV 14.4 11.1 - 14.9 % SINGH Comment:Testing performed by : [facility] [place] [address] RDW SD 47.1 35.7 - 48.1 fL SINGH Comment:Testing performed by : [facility] [place] [address] NRBC abs 0.00 0.00 - 0.01 K/cumm SINGH Comment:Testing performed by : [facility] [place] [address] ANC Prelim 5.19 1.50 - 6.50 K/cumm SINGH Comment: Interpretive Data The rapid ANC is a preliminary automated count and may vary from the final ANC (Neut Abs) reported in the WBC differential that follows. Current interpretive data was last revised 2024. Testing performed by: [facility] [place] [address] Blood 06/30/2024 10:3 9 AM CDT 06/30/2024 10:39 AM CDT us Martin Gallardo MD LAB BLOOD ORDERABLES Trever miguel angel Result - Final SINGH [place]URST [address] [address] Department [place] [address] * (ABNORMAL) Protein electrophoresis with reflex, serum with interpretation (06/30/2024 10:39 AM CDT) Pathologist [facility] Protein, sr 7.8 6.2 - 8.2 g/dL Albumin 4.6 3.2 - 5.0 g/dL CERNER CH Alpha-1 globulin 0.3 0.2 - 0.4 g/dL [...] ORDERABLES Fin al Result Performing Organization Address City/[facility]/ZIP Co de Phone Number SINGH NATALI [address] [place] [address] * Lactate dehydrogenase (LD) (06/30/2024 10:39 AM CDT) [facility] Lactate dehydrogenase (LDH) 162 100 - 250 Units/L Comment:Testing performed by : [facility] [place] [address] Blood 06/30/2024 10:3 9 AM CDT 06/30/2024 10:39 AM CDT Martin Gallardo MD LAB BLOOD ORDERABLES Fin al Result TESFAYEKAYKAY HURST [address] [address] [place] [address] * IgA (06/30/2024 10:39 AM CDT) Pathologist [facility] Immunoglobulin A 223 70 - 400 mg/dL Blood 06/30/2024 10:3 9 AM CDT 06/30/2024 11:47 AM CDT Martin Gallardo MD LAB BLOOD ORDERABLES Fin al Result Performing Organization Address [facility] Co de Phone Number SINGH [address] [address] [facility] [place] [address] * IgM (06/30/2024 10:39 AM CDT) Pathologist [facility] Immunoglobulin M 89 40 - 150 mg/dL Blood 06/30/2024 10:3 9 AM CDT 06/30/2024 11:47 AM CDT Martin Gallardo MD LAB BLOOD ORDERABLES Fin al Result Performing Organization Address [facility] Phone Number SINGH [phone] [address] [facility] [place] [address] * IgG (06/30/2024 10:39 AM CDT) Pathologist [facility] Immunoglobulin G 1,106 700 - 1,600 mg/dL Blood 06/30/2024 10:3 9 AM CDT 06/30/2024 11:47 AM CDT Martin Gallardo MD LAB BLOOD ORDERABLES Fin al Result Performing Organization Address [facility] de Phone Number [facility] [address] [address] [place] [address] * (ABNORMAL) Comprehensive metabolic panel (06/30/2024 10:39 AM CDT) Pathologist [facility] Sodium 138 135 - 145 mmol/L Comment:Testing performed by : [facility] [place] [address] Potassium, pl 3.9 3.3 - 4.9 mmol/L SINGH Comment:Testing performed by : [facility] [place] [address] Chloride 101 97 - 110 mmol/L SINGH Comment:Testing performed by : [facility] [place] [address] CO2 25 22 - 32 mmol/L CERNER CH Comment:Testing performed by : [facility] [place] [address] Anion gap 12 2 - 15 mmol/L CERNER CH Comment:Testing performed by : [facility] [place] [address] BUN 19 6 - 25 mg/dL CERNER CH Comment:Testing performed by : [facility] [place] [address] Creatinine 1.16(H) 0.60 - 1.10 mg/dL CERNER CH Comment:Testing performed by : [facility] [place] [address] Glucose 142 70 - 199 mg/dL CERNER [...] was last revised 2022. Testing performed by: [facility] [place] [address] Calcium 9.5 8.5 - 10.3 mg/dL CERNER CH Comment:Testing performed by : [facility] [place] [address] Bilirubin, total 0.5 0.1 - 1.2 mg/dL CERNER CH Comment:Testing performed by : [facility] [place] [address] Protein, pl 7.8 6.5 - 8.5 g/dL CERNER CH Comment:Testing performed by : [facility] [place] [address] Albumin 4.6 3.5 - 5.0 g/dL CERNER CH Comment:Testing performed by : [facility] [place] [address] Alk phos 112 40 - 130 Units/L CERNER CH Comment:Testing performed by : [facility] [place] [address] ALT 22 7 - 45 Units/L SINGH HURST Comment:Testing performed by : [facility] [place] [address] AST 25 10 - 45 Units/L SINGH Comment:Testing performed by : [facility] [place] [address] Blood 06/30/2024 10:3 9 AM CDT 06/30/2024 10:39 AM CDT us Martin Gallardo MD LAB BLOOD ORDERABLES Fin al Result SINGH [address] [place] [address] * Clinical pathology report (06/30/2024 10:39 AM CDT) Miscellaneous 06/30/2024 10: 39 AM CDT 07/02/2024 8:52 AM CDT Narrative 07/03/2024 4:10 PM CDT EPIC results best viewed via link to PDF [facility] Department of Pathology [address] [place] [id number] Final Report Note to Patients: This [...] the details. Patient Name: DINORA DARNELL Address: [address] [place] [address] Gender: F : 1955 (Age: 69) Service: Location: Hospital #: [id number] Patient Type: Ancillary Taken: 06/30/2024 Received: 07/02/2024 Accessioned: 07/02/2024 Physician(s): Martin Gallardo M.D. Specimen(s) Received A: Blood (serum) Serum [...] determined by the Surgical Pathology Department at [facility] as part of an ongoing quality control auditor program and in compliance with federally mandated [...] characteristics determined by the Surgical Pathology Department [facility]. It has not been cleared or approved by the U. S. Food and Drug Administration. REPORT IMAGES AND SCANNED DOCUMENTS, IF INCLUDED, ONLY VIEWABLE IN PDF VERSION OF REPORTe o us Martin Gallardo MD LAB PATHOLOGY ORDERABLES Final Result from Last 3 Months Insurance IDPA [facility] MEDICARE ADVANTAGE [facility] Address: [address] [address] [place] [address] [facility] MEDICARE ADVANTAGE [facility] Address: [address] [address] [place] [address] [facility] Care Teams Claims Configuration Analyst Relationship Specialty Start Date End Date Gilbert Greenwood PA [address] [place] [address] PCP - General Internal Medicine 11/18/20 Octavio Heath DO Referring Physician Nephrology 11/18/20 August Grimes MD [address] [place] [address] Consulting Physician Endocrinology 11/30/20 Jamilah Sapp MD [address] [place] [address] Referring Physician Gastroenterology 07/11/22 Martin Gallardo MD [address] [facility] [address] [place] [address] Consulting Physician Medical Oncology 07/01/23
--- OUTSIDE RECORDS SUMMARY | 2024-09-16 10:16 | XMS_ITS | Data Portability ---
Author Organization [facility] Address [address] [place] [address] Assessment No assessment recorded. Plan of Treatment Reminders Order Date Submit Date Provider Last Modified By Organization Details Last Modified Time Details Appointments None recorded. Lab HbA1c (hemoglobin A1c), blood 2021 [facility], [address], [place], [address], 3 13:09:44 lipid panel, serum 2021 [facility], [address], [place], [address], 3 13:09:41 microalbumi n, urine 2021 [facility], [address], [place], [address], 3 13:09:40 vitamin D, 25-hydroxy, total, serum 2021 [facility], [address], [place], [address], 3 13:09:44 CMP, serum or plasma 2021 [facility], [address], [place], [address], 3 13:09:42 TSH + free T4, serum 2021 022 [facility], [address] [facility], [place], [address], 3 13:09:40 Referral None recorded. Procedures None recorded. Surgeries None recorded. Imaging MAMMO, screening, bilateral 2023 024 [facility] ([facility]), [address] [place], [address], 4 16:30:14 MAMMO, screening, bilateral [email or web address] [address] ([facility]), [address] [place], [address], 3 12:10:48 Medication Orders alcohol swabs 2022 023 [facility], [address] [place] [address], [address], 3 15:01:45 levothyroxi ne 112 mcg tablet 2022 023 [facility], [address] [place] [address], [address], 3 15:01:44 calcium 600 mg (as carbonate)- vitamin D3 10 mcg (400 unit) tablet 2022 023 [facility], [address] [place], [address], 3 14:51:48 metformin 500 mg tablet 2021 022 [facility], [address] [place] [address], [address], 2 18:14:10 hydrocodone 5 mg-acetamin ophen 325 mg tablet [address] [facility], [address] [place], [address], 3 10:40:45 cyclobenzap rine 10 mg tablet 2021 [facility], [address] [place], [address], 18:14:14 buspirone 5 mg tablet 2021 [facility], [address] [place] [address], [address], 18:14:17 albuterol sulfate HFA 90 mcg/actuati on aerosol inhaler 2021 [facility] [address], [address] [place] [address], [address], 18:14:18 losartan 100 mg tablet 2021 [facility], [address] [place] [address], [address], 18:14:15 levothyroxi ne 112 mcg tablet 2021 [facility] [address], [address] [place] [address], [address], 18:14:12 Patient TargetsNo targets recorded. Patient Instructions Encounter Date Encounter Id Patient Instructions Last Modified By Organization Details Last Modified Time 03/22/2022 [id number] sleep apnea: car e instructions [email or web address] Not available 03/22/2022 18:14:01 04/24/2022 [id number] A healthy lifestyle: care instructions Not available 04/24/2022 14:51:26 well visit, wome n 50 to 65: care instructions Not available 04/24/2022 14:51:26 learning about breast cancer screening Not available 04/24/2022 14:51:26 LAUREN Roldan, Discussed with JAYSON [email or web address] Not available 04/24/2022 15:08:50 05/08/2022 [id number] hypercalcemia: care instructions [email or web address] Not available 05/08/2022 15:01:39 learning about type 2 diabetes Not available 05/08/2022 15:01:39 type 2 diabetes: care instructions [email or web address] Not available 05/08/2022 15:01:39 When You Want to Lose Weight: Care Instructions [email or web address] Not available 05/08/2022 15:04:14 A healthy lifestyle: care instructions [email or web address] Not available 05/08/2022 15:04:14 high cholesterol : care instructions [email or web address] Not available 05/08/2022 15:01:39 sleep apnea: car e instructions Not available 05/08/2022 15:01:39 learning about high blood pressure [email or web address] Not available 05/08/2022 15:01:39 Nonalcoholic Fatty Liver Disease (NAFLD): Care Instructions [email or web address] Not available 05/08/2022 15:01:39 neuropathic pain : care instructions [email or web address] Not available 05/08/2022 15:01:39 08/06/2022 [id number] learning about type 2 diabetes [email or web address] Not available 08/06/2022 16:04:19 type 2 diabetes: care instructions [email or web address] Not available 08/06/2022 16:04:19 back care and preventing injuries: care instructions [email or web address] Not available 08/06/2022 16:04:19 When You Want to Lose Weight: Care Instructions [email or web address] Not available 08/06/2022 16:04:18 A healthy lifestyle: care instructions [email or web address] Not available 08/06/2022 16:04:18 chronic obstructive pulmonary disease (COPD): care instructions [email or web address] Not available 08/06/2022 16:04:18 learning about copd and how to prevent lung infections [email or web address] Not available 08/06/2022 16:04:18 high cholesterol : care instructions [email or web address] Not available 08/06/2022 16:04:18 learning about high blood pressure Not available 08/06/2022 16:04:18 Nonalcoholic Fatty Liver Disease (NAFLD): Care Instructions [email or web address] Not available 08/06/2022 16:04:19 hypothyroidism: care instructions [email or web address] Not available 08/06/2022 16:04:18 neuropathic pain : care instructions [email or web address] Not available 08/06/2022 16:04:19 06/03/2023 [id number] On the date of this encounter, I was immediately available to assist the resident/fellow in the care of the patient, and have reviewed and agree with the resident s findings and plan of care. ~MD helen Marie4 Not available 06/03/2023 12:17:27 Reason for Referral None Reported. Results Created Date Observation Date Name Description Value Unit Range Abnormal Flag Note LastModifiedBy Organization Detail LastModifiedTime 04/18/1904/19/2022 TSH+F REE T4 TSH 0.713 uIU/m L 0.450- 4.500 Not Available [facility] ([facility]) [address] [place], [address], 04/19/2022 13:09:40 04/18/1904/19/2022 TSH+F REE T4 T4,free(dire ct) 1.31 NG/dL 0.82-1 .77 Not Available [facility] ([facility]) [address] [place], [address], 04/19/2022 13:09:40 04/18/19 23 04/19/2022 LIPID PANEL cholesterol, total 177 mg/dL 100-19 9 Not Available [facility] ([facility]) [address] [place], [address], 04/19/2022 13:09:41 04/18/19 23 04/19/2022 LIPID PANEL triglyceride s 253 mg/dL 0-149 above high normal Not Available [facility] ([facility]) [address] [place], [address], 04/19/2022 13:09:41 04/18/19 23 04/19/2022 LIPID PANEL HDL cholesterol 61 mg/dL >39 Not Available [facility] ([facility]) [address] [place], [address], 04/19/2022 13:09:41 04/18/19 23 04/19/2022 LIPID PANEL VLDL cholesterol stacy 41 mg/dL 5-40 above high normal Not Available [facility] ([facility]) [address] [place], [address], 04/19/2022 13:09:41 04/18/19 23 04/19/2022 LIPID PANEL LDL chol calc ([facility]) 75 mg/dL 0-99 Not Available [facility] ([facility]) [address] [place], [address], 04/19/2022 13:09:41 04/18/19 23 04/19/2022 COMP. METAB OLIC PANEL (14) glucose 146 mg/dL 70-99 above high normal Not Available [facility] ([facility]) [address] [place], [address], 04/19/2022 13:09:42 04/18/19 23 04/19/2022 COMP. METAB OLIC PANEL (14) BUN 23 mg/dL 8-27 Not Available [facility] ([facility]) [address] [place], [address], 04/19/2022 13:09:42 04/18/19 23 04/19/2022 COMP. METAB OLIC PANEL (14) creatinine 1.26 mg/dL 0.57-1 .00 above high normal Not Available [facility] ([facility]) [address] [place], [address], 04/19/2022 13:09:42 04/18/19 23 04/19/2022 COMP. METAB OLIC PANEL (14) eGFR 48 mL/mi n/1.7 3 >59 below low normal Not Available [facility] ([facility]) [address] [facility], [place], [address], 04/19/2022 13:09:42 04/18/19 23 04/19/2022 COMP. METAB OLIC PANEL (14) BUN/creatini ne ratio 18 -28 Not Available [facility] ([facility]) [address], [place], [address], 04/19/2022 13:09:42 04/18/19 23 04/19/2022 COMP. METAB OLIC PANEL (14) sodium 143 mmol/ L 134-14 4 Not Available [facility] ([facility]) [address], [place], [address], 04/19/2022 13:09:42 04/18/19 23 04/19/2022 COMP. METAB OLIC PANEL (14) potassium 3.9 mmol/ L 3.5-5. 2 Not Available [facility] ([facility]) [address] [facility], [place], [address], 04/19/2022 13:09:42 04/18/19 23 04/19/2022 COMP. METAB OLIC PANEL (14) chloride 102 mmol/ L 96-106 Not Available [facility] ([facility]) [address] [facility], [place], [address], 04/19/2022 13:09:42 04/18/19 23 04/19/2022 COMP. METAB OLIC PANEL (14) carbon dioxide, total 23 mmol/ L 20-29 Not Available [facility] ([facility]) [address] [facility], [place], [address], 04/19/2022 13:09:42 04/18/19 23 04/19/2022 COMP. METAB OLIC PANEL (14) calcium 9.4 mg/dL 8.7-10 .3 Not Available [facility] ([facility]) [address] [facility], [place], [address], 04/19/2022 13:09:42 04/18/19 23 04/19/2022 COMP. METAB OLIC PANEL (14) protein, total 7.0 g/dL 6.0-8. 5 Not Available [facility] ([facility]) [address], [place], [address], 04/19/2022 13:09:42 04/18/19 23 04/19/2022 COMP. METAB OLIC PANEL (14) albumin 4.6 g/dL 3.8-4. 8 Not Available [facility] ([facility]) [address], [place], [address], 04/19/2022 13:09:42 04/18/19 23 04/19/2022 COMP. METAB OLIC PANEL (14) globulin, total 2.4 g/dL 1.5-4. 5 Not Available [facility] ([facility]) [address] [place], [address], 04/19/2022 13:09:42 04/18/19 23 04/19/2022 COMP. METAB OLIC PANEL (14) A/G ratio 1.9 1.2-2. 2 Not Available [facility] ([facility]) [address] [place], [address], 04/19/2022 13:09:42 04/18/19 23 04/19/2022 COMP. METAB OLIC PANEL (14) bilirubin, total 0.5 mg/dL 0.0-1. 2 Not Available [facility] ([facility]) [address] [place], [address], 04/19/2022 13:09:42 04/18/19 23 04/19/2022 COMP. METAB OLIC PANEL (14) alkaline phosphatase 118 IU/L 44-121 Not Available [facility] ([facility]) [address], [place], [address], 04/19/2022 13:09:42 01/18/04/19/2022 COMP. METAB OLIC PANEL (14) AST (SGOT) 36 IU/L 0-40 Not Available [facility] ([facility]) [address] [facility], [place], [address], 04/19/2022 13:09:42 04/18/19 23 04/19/2022 COMP. METAB OLIC PANEL (14) ALT (SGPT) 39 IU/L 0-32 above high normal Not Available [facility] ([facility]) [address] [facility], [place], [address], 04/19/2022 13:09:42 04/18/19 23 04/19/2022 VITAM IN D, 25-HY DROXY vitamin D, 25-hydroxy 40.9 NG/mL 30.0-1 00.0 Vitam in D defic iency has been defin ed by the Insti tute of Medic ine and an Endoc rine Socie ty pract ice guide line as a level of serum 25-OH vitam in D less than 20 ng/mL (1,2) . The Endoc rine Socie ty went on to furth er defin e vitam in D insuf ficie ncy as a level betwe en 21 and 29 ng/mL (2). 1. IOM (Inst itute of Medic ine). 2009. Dieta ry refer ence intak es for calci um and D. Michael nicole [place]: The [facility] . 2. Mahnaz diez MF, Ibeth alanis NC, Yusra off-F carmina i MC, et al. Evalu ation , treat ment, and preve ntion of vitam in D defic iency : an Endoc rine Socie ty clini stacy pract ice guide line. JCEM. 2010; 96(7) :1911 -30. Not Available [facility] ([facility]) [address] [facility], [place], [address], 04/19/2022 13:09:44 04/18/19 23 04/19/2022 HEMOG LOBIN A1C hemoglobin A1C 6.8 % 4.8-5. 6 above high normal Predi abete s: 5.7 - 6.4 Diabe tahira: >6.4 Glyce jeanette contr ol for adult s with diabe tahira: <7.0 Not Available [facility] ([facility]) [address] [facility], [place], [address], 04/19/2022 13:09:43 04/18/19 23 04/19/2022 DIABE TAHIRA PATIE NT EDUCA TION pdf Not applic able Not Available [facility] ([facility]) [address] [facility], [place], [address], 04/19/2022 13:09:43 04/18/19 23 04/19/2022 LITHO LINK CKD PROGR AM interpretati on Note ----- ----- ----- ----- ----- ----- - CHRON IC KIDNE Y DISEA SE: EGFR, BLOOD PRESS URE, AND PROTE INURI A ASSES SMENT We presu me eGFR has been less than 60 mL/mi n/1.7 3mE2 on at least two occas ions space d at least 3 month s apart . Curre nt eGFR is 48 mL/mi n/1.7 3mE2 corre spond ing to CKD stage 3a. Potas sium is withi n goal and has not jacobson ed signi fican tly, was 4.2 and now is 3.9 mmol/ L. Glyce jeanette contr ol (HB A1c: 6.8 EGFR, BLOOD PRESS URE, AND PROTE INURI A TREAT MENT SUGGE STION S - Guide lines recom mend treat ing patie nts with type 2 diabe tahira and CKD with an SGLT2 inhib itor for cardi orena l prote ction . Guide lines recom mend a targe t blood press ure of 120/8 0 mmHg or less to reduc e cardi ovasc ular risk and CKD progr essio n. Asses sment of album inuri a (urin e album in:cr eatin ine ratio or urine prote in:cr eatin ine ratio prefe rred) is recom mo d at least annua lly in CKD patie nts for stagi ng and disea se progn osis. EGFR, BLOOD PRESS URE, AND PROTE INURI A FOLLO W-UP - fasti ng Renal Panel withi n 12 month s; Spot Urine Panel (Albu min prefe rred) is recom mo d by guide lines , at least yearl y; Hemog lobin A1C withi n 6 month s; BONE and BOX STACKER AL ASSES SMENT Calci um is withi n goal and has not jacobson ed signi fican tly, was 9.6 and now is 9.4 mg/dL . Carbo n Dioxi de is withi n goal and has not jacobson ed signi fican tly, was 24 and now is 23 mmol/ L. Vitam in D is adequ ate (40.9 ng/mL ). BONE and BOX STACKER AL TREAT MENT WILFREDO VILLAGRAN S - Inter preta tions requi re simul taneo us measu remen ts of serum calci um and phosp horus . BONE and BOX STACKER AL FOLLO W-UP - 25-Hy droxy Vitam in D withi n 12 month s; fasti ng PTH with Renal Panel is recom mo d by guide lines , at least yearl y; LIPID S ASSES SMENT LDL-C is flaquita l and has decre ased, was 139 and now is 75 mg/dL . Trigl yceri de is high and has decre ased, was 316 and now is 253 mg/dL . Non-H DL Alexandra stero l is flaquita l and has decre ased, was 196 and now is 116 mg/dL . HDL-C is high and has risen , was 49 and now is 61 mg/dL . LIPID S TREAT MENT WILFREDO VILLAGRAN S - Thera peuti c lifes tyle jacobson es are alway s valua ble to maint ain optim al blood lipid statu s (diet , exerc ise, weigh t manag ement ). If at least a 50% LDL reduc tion from basel ine has not been achie cornell, begin or incre ase stati n. Consi jazmyn measu remen t of LDL parti hannah numbe r or Apo B to adjud icate need for furth er LDL lower ing thera py. If stati n canno t be nanette ated or incre ased, alter nativ es inclu de use of an intes tinal agent (ezet imibe or bile acid seque stran t), niaci n, and/o r fish oil. LIPID S FOLLO W-UP - fasti ng Lipid Panel withi n 12 month s; ANEMI A ASSES SMENT Most recen t order does not inclu de a CBC Panel or iron studi es. ANEMI A FOLLO W-UP - CBC is recom mo d by guide lines , at least yearl y; ----- ----- ----- ----- ----- ----- - DISCL AIMER These asses sment s and treat ment sugnorberto stihipolito s are provi ded as a conve nienc e in suppo rt of the physi miya- patie nt relat ionsh ip and are not inten ded to repla ce the physi miya' s clini stacy judgm ent. They are deriv ed from natio nal guide lines in addit ion to other evide nce and exper t opini on. The clini miya shoul d consi jazmyn this infor matio n withi n the kana xt of clini stacy opini on and the indiv idual patie nt. SEE SAMUEL NCE FOR CHRON IC KIDNE Y DISEA SE PROGR AM: Kidne y Disea se Impro ving Globa l Outco mes (KDIG O) clini stacy pract ice guide lines are at http: //kdi go.or g/maranda tillman/sajan brar/. Natio nal Kidne y Found ation Kidne y Disea se Outco mes Quali ty Initi ative (KDOQ I (TM)) , with its limit ation s and discl aimer s, are at www.k idney .org/ profe joseon als/K DOQI. This progr am is inten ded for patie nts who have been diagn osed with stage s 3, 4, or pre-d ialys is 5 CKD. It is not inten ded for child judith, pregn ant patie nts, or trans plant patie nts. Not Available [facility] ([facility]) [address] [facility], [place], [address], 04/19/2022 13:09:43 04/18/19 23 04/19/2022 LITHO LINK CKD PROGR AM pdf . Not Available [facility] ([facility]) [address], [place], [address], 04/19/2022 13:09:43 04/18/19 23 04/19/2022 ALBUM IN, ANTONIO M URINE albumin, urine 7.7 ug/mL notest ab. Not Available [facility] ([facility]) [address], [place], [address], 04/19/2022 13:09:39 06/07/19 23 06/13/2022 COMPL IANCE DRUG DAVID SIS, UR summary report (summary) FINAL ===== ===== ===== ===== ===== ===== ===== ===== ===== ===== ===== ===== ===== === TOXAS SURE COMP DRUG DAVID SIS,U R ===== ===== ===== ===== ===== ===== ===== ===== ===== ===== ===== ===== ===== === Test Resul t Flag Units Drug Prese nt [place] codon e 801 ng/mg creat [place] morph one 124 ng/mg creat Dihyd rocod eine 143 ng/mg creat Norhy droco done 898 ng/mg creat Sourc es of hydro codon e inclu de sched uled presc ripti on medic ation s. [place] morph one, dihyd rocod eine and norhy droco done are expec miguel angel metab olite s of hydro codon e. [place] morph one and dihyd rocod eine are also avail able as sched uled presc ripti on medic ation s. Cyclo benza kuldeep PRESE NT Desme thylc yclob enzap rine PRESE NT Desme thylc yclob enzap rine is an expec miguel angel metab olite of cyclo benza kuldeep . Aceta minop hen PRESE NT ===== ===== ===== ===== ===== ===== ===== ===== ===== ===== ===== ===== ===== === Test Resul t Flag Units Ref Range Creat inine 155 mg/dL >=20 ===== ===== ===== ===== ===== ===== ===== ===== ===== ===== ===== ===== ===== === Decla red Medic ation s: Medic ation list was not provi ded. ===== ===== ===== ===== ===== ===== ===== ===== ===== ===== ===== ===== ===== === For clini stacy consu ltati on, pleas e call . ===== ===== ===== ===== ===== ===== ===== ===== ===== ===== ===== ===== ===== === Not Available [facility] ([facility]) [address] [facility], [place], [address], 06/13/2022 13:10:44 06/07/19 23 06/13/2022 COMPL IANCE DRUG DAVID SIS, UR pdf . Not Available [facility] ([facility]) [address] [facility], [place], [address], 06/13/2022 13:10:44 05/11/19 23 05/11/2022 MAMMO , scree diana, bilat eral No observ ation record ed. [email or web address] [address] [place], [address], 05/25/2022 14:26:30 06/11/19 24 06/11/2023 MAMMO , scree diana, bilat eral No observ ation record ed. [facility] [address] [place], [address], 06/17/2023 14:24:39 06/12/19 24 06/11/2023 LDCT, chest , for lung cance r scree diana No observ ation record ed. [facility] [address] [place], [address], 06/17/2023 14:29:28 Result Notes None recorded. Problems Name Problem SNOMED Code Status Onset Date Resolution Date Notes Provider Name and Address Organization Details Recorded Time Umbilica l hernia 606876553 Active 2018 Mel Lugo MD Attn: Asael tijerina,[address] [place], [address], [facility] 4 20:20:40 Obese 436139068 Completed 201805/08/2022 Jamilah Sapp MD Attn: Asael tijerina,[address] [place], [address], [facility] 3 14:54:17 Hepatome jessica 21624956 Active 2018 Mel Lugo MD Attn: Asael tijerina,[address] [place], [address], [place] [facility] 4 20:16:31 Non-alco holic fatty liver 515036657 Active 2018 Mel Lugo MD Attn: Asael tijerina,[address] [place], [address], [facility] 4 20:19:17 Non-alco holic fatty liver 820498258 Active 2018 Mel Lugo MD Attn: Asael tijerina,[address] [place], [address], [place] [facility] 4 20:19:17 Hypercal cemia 92050011 Completed 201806/03/2023 Mel Lugo MD Attn: Asael tijerina,[address] [facility], [place], [address], [place] [facility] 4 20:16:35 Pain in both feet 69000097593 740111 Completed 201806/03/2023 Mel Lugo MD Attn: Matthewjose tijerina,[address] [facility], [place], [address], [place] [facility] 4 20:19:43 Neuropat hy 224730803 Active 2018 Mel Lugo MD Attn: Asael lilliana,[address] [place], [address], [place] [facility] 4 20:19:13 Administ ration of tetanus vaccine Completed 201906/03/2023 Mel Lugo MD Attn: Asael lilliana,[address] [facility], [place], [address], [place] [facility] 4 20:16:05 Acute sinusiti s 83667036 Completed 201906/03/2023 Mel Lugo MD Attn: Asael lilliana,[address] [facility], [place], [address], [place] [facility] 4 20:15:31 Injury of ribs 509635011 Completed 201906/03/2023 left Mel Lugo MD Attn: Asael lilliana,[address] [facility], [place], [address], [place] [facility] 4 20:16:24 Hyperlip idemia 54415288 Active 2019 eMl Lugo MD Attn: Asael lilliana,[address] [facility], [place], [address], [place] [facility] 4 20:16:37 Serum creatini ne above referenc e range 643194154 Active 2019 Mel Lugo MD Attn: Asael g,[address] [facility], [place], [address], [place] [facility] 4 20:20:21 Pain in right lower limb 233871819 Completed 202006/03/2023 Mel Lugo MD Attn: Asael g,[address] [facility], [place], [address], [place] [facility] 4 20:20:03 Monoclon al gammopat hy (clinica l) 015218824 Active 2020 Dr Radha Lugo MD Attn: Asael g,[address] [facility], [place], [address], [place] [facility] 4 20:18:18 Sleep apnea 44702209 Active 2021 Mel Lugo MD Attn: Asael tijerina,[address] [facility], [place], [address], [place] [facility] 4 20:20:32 Pain in lower limb 46030075 Completed 202106/03/2023 Mel Lugo MD Attn: Asael tijerina,[address] [facility], [place], [address], [place] [facility] 4 20:20:00 Morbid obesity 719332053 Completed 202206/03/2023 Mel Lugo MD Attn: Asael g,[address] [facility], [place], [address], [place] [facility] 4 20:19:33 Medicati on monitori ng Completed 202206/03/2023 Mel Lugo MD Attn: Asael tijerina,[address] [facility], [place], [address], [place] [facility] 4 20:17:51 Essentia l hyperten naya 00866927 Active Mel Lugo MD Attn: Asael tijerina,[address] [facility], [place], [place], [address] [place] [address] 2, [place] [facility] 4 20:16:29 Hypothyr oidism 76666878 Active Mel Lugo MD Attn: Asael lilliana,[address] [facility], [place], [address] [place] [address] 2, [place] [facility] 4 20:16:40 Anxiety 33898970 Active Mel Lugo MD Attn: Asael tijerina,[address] [facility], [place], [address] [place] [address] 2, [place] [facility] 4 20:16:26 Insomnia 346670262 Active Mel Lugo MD Attn: Asael lilliana,[address] [facility], [place], [address] [place] [address] 2, [place] [facility] 4 20:16:44 Acute urinary tract infectio n 960245398 Completed 06/03/2023 Mel Lugo MD Attn: Asael tijerina,[address] [facility], [place], [address] [place] [address] 2, [place] [facility] 4 20:15:36 Urethrit is 96957458 Completed 06/03/2023 Mel Lugo MD Attn: Asael tijerina,[address] [facility], [place], [address] [place] [address] 2, [place] [facility] 4 20:20:46 Menopaus al symptom 74607096 Active Mel Lugo MD Attn: Asael tijerina,[address] [facility], [place], [place], [address] [place] [address] 2, [place] [facility] 4 20:18:08 Low back pain 381022466 Completed 06/03/2023 Mel Lugo MD Attn: Asael tijerina,[address] [place], [place], [address] [place] [address], [place] [facility] 4 20:17:34 Chronic obstruct nadeen pulmonar y disease 63807344 Active Mel Lugo MD Attn: Asael tijerina,[address] [place], [address], [place] - [facility] 4 20:16:11 Obesity 286056124 Active Mel Lugo MD Attn: Asael tijerina,[address] [facility], [place], [address], [place] [facility] 4 20:19:37 Tobacco user [id number] Completed 05/08/2022 Jamilah Sapp MD Attn: Asael tijerina,[address] [facility], [place], [address], [place] [facility] 3 14:51:42 Pain on movement of cervical spine 570229763 Completed 06/03/2023 Mel Lugo MD Attn: Asael g,[address] [facility], [place], [address], [place] [facility] 4 20:20:09 Screenin g for malignan t neoplasm of colon Completed 201506/03/2023 Repeat colonosc opy in 2028 Mel Lugo MD Attn: Matthewjose tijerina,[address] [facility], [place], [address], [place] [facility] 4 20:20:13 Type 2 diabetes mellitus 22030786 Active 2016 Mel Lugo MD Attn: Matthewjose tijerina,[address] [facility], [place], [address], [place] [facility] 4 20:20:36 Administ ration of influenz a vaccine Completed 201606/03/2023 Mel Lugo MD Attn: Asael g,[address] [facility], [place], [address], [place] [facility] 4 20:15:49 Mass of thyroid gland 793819567 Active 2016 Mel Lugo MD Attn: Asael g,[address] [facility], [place], [address], [place] [facility] 4 20:17:37 Problem Notes None recorded. Procedures Surgical History Date Name Laterality Status Provider Name and Address Organization Details Recorded Time 6 Most Recent Mammogram completed [place]onna [place]JULIA [place] - [facility] 04/02/2017 15:24:12 6 Other completed MAIK SAWANT NP [address] [place], [address], [facility] - [facility] 12/24/2018 14:47:18 5 Date of Last Pap Smear completed Shonna LiJULIA [place] - [facility] 01/19/2016 15:35:40 Tubal Ligation completed Li Rain [place] - [facility] 03/18/2014 17:04:50 Imaging Results None recorded. Procedure Notes None recorded. Medical Equipment None Reported. Allergies Allergen ID Allergen Name Allergen Category Reaction Reaction Severity Criticality Documentation Date Start Date Code Code System Note Provider Name and Address Organization Details Recorded Time 153885 ciproflox acin medicatio n dizziness severe Not available 12/17/2019 2551 RxNorm Not Available [facility] 4 13:53:52 Medications Name Sig Start Date Stop Date Status Note LastModified by Organization Details LastModified Time Prescript ion - Clarifica tion 01/18 completed Not Available Not Available Not Available multivita min tablet Take 1 tablet every day by oral route. 03/22 completed Not Available Not Available Not Available losartan 50 mg tablet TAKE ONE TABLET BY MOUTH TWICE DAILY IN THE MORNING FOR 30 DAYS 04/02 completed Not Available Not Available Not Available penicilli n V potassium 250 mg tablet Take 1 tablet every 6 hours by oral route for 10 days. 04/02 completed Not Available Not Available Not Available cyclobenz aprine 10 mg tablet TAKE 1 TABLET BY MOUTH ONCE DAILY AT BEDTIME active Not Available Not Available No t Available latanopro st 0.005 % eye drops INSTILL 1 DROP INTO EACH EYE AT BEDTIME DIRECTED active Not Available Not Available No t Available buspirone 5 mg tablet TAKE 1 TABLET BY MOUTH TWICE DAILY AFTER A MEAL active Not Available Not Available No t Available metformin 500 mg tablet TAKE 1/2 (ONE-CAR F) TABLET BY MOUTH TWICE DAILY BEFORE MEAL(S) active Not Available Not Available No t Available Qvar 80 mcg/actua tion Metered Aerosol oral inhaler INHALE TWO PUFFS BY MOUTH TWICE DAILY RINSE MOUTH AFTER 12/18 /2018 completed Not Available Not Available Not Available promethaz ine-DM 6.25 mg-15 mg/5 mL oral syrup TAKE 5 ML BY MOUTH EVERY 4 HOURS FOR 10 DAYS 12/06 completed Not Available Not Available Not Available prednison e 10 mg tablet TAKE 4 TABLETS BY MOUTH DAILY FOR DAYS 1-3, THEN 3 TABLETS DAILY ON DAYS 4-5, THEN TAKE 2 TABLETS DAILY ON DAYS 6-7, THEN TAKE 1 TABLET DAILY ON DAY 8 12/06 completed Not Available Not Available Not Available trazodone 50 mg tablet TAKE ONE TABLET BY MOUTH ONCE DAILY AT BEDTIME NEEDED 03/18 completed Not Available Not Available Not Available atorvasta tin 10 mg tablet TAKE 1 TABLET BY MOUTH ONCE DAILY AT NIGHT active Not Available Not Available No t Available Tab-A-Vit e tablet Take 1 tablet by mouth once daily 01/18 completed Not Available Not Available Not Available azithromy jevon 250 mg tablet TAKE 2 TABLETS BY MOUTH ON DAY 1, AND THEN TAKE 1 TABLET BY MOUTH ONCE A DAY ON DAY 2 THROUGH DAY 5 12/06 completed Not Available Not Available Not Available ibuprofen 800 mg tablet Take 1 tablet 3 times a day by oral route for 30 days. 04/02 completed Not Available Not Available Not Available fluconazo le 150 mg tablet TAKE ONE TABLET BY MOUTH EVERY THIRD DAY NEEDED FOR YEAST VAGINITI S 04/02 completed Not Available Not Available Not Available medroxypr ogesteron e 2.5 mg tablet TAKE ONE TABLET BY MOUTH ONCE DAILY active Not Available Not Available No t Available hydrocodo ne 5 mg-acetam inophen 325 mg tablet TAKE 1 TABLET BY MOUTH TWICE DAILY NEEDED active Not Available Not Available No t Available phenazopy ridine 200 mg tablet Take 1 tablet 3 times a day by oral route for 2 days. 04/02 completed Not Available Not Available Not Available prednison e 20 mg tablet TAKE 2 TABS BY MOUTH TWICE DAILY FOR 2 DAYS, THEN TAKE 1 TAB TWICE DAILY FOR 5 DAYS, THEN TAKE 1/2 TAB TWICE DAILY FOR 2 DAYS, THEN TAKE 1/2 TAB FOR 1 DAY TAKE THE 2ND DOSE EVERY DAY AT NOON active Not Available Not Available No t Available clobetaso l 0.05 % topical cream APPLY A THIN LAYER OF CREAM TOPICALL Y TO THE AFFECTED SKIN AREA(S) TWICE DAILY AND RUB IN GENTLY AND COMPLETE LY 04/02 completed Not Available Not Available Not Available amlodipin e 5 mg tablet Take 1 tablet every day by oral route in the morning for 30 days. 02/09 completed Not Available Not Available Not Available ciproflox acin 500 mg tablet Take 1 tablet every 12 hours by oral route for 10 days. 11/23 completed Not Available Not Available Not Available sulfameth oxazole 800 mg-trimet hoprim 160 mg tablet Take 1 tablet every 12 hours by oral route for 10 days. 03/22 completed Not Available Not Available Not Available triamcino lone acetonide 0.1 % topical cream 12/24 completed Not Available Not Available Not Available Euthyrox 100 mcg tablet Take 1 tablet every day by oral route in the morning for 30 days. 07/20 completed increase d to 112 Not Available Not Available Not Available methylpre dnisolone acetate 80 mg/mL suspensio n for injection Take 1 mL by injectio n route for 1 day. 01/18 completed Not Available Not Available Not Available prednisol one acetate 1 % eye drops,charley pension 04/02 completed Not Available Not Available Not Available nifedipin e ER 60 mg tablet,ex tended release 24 hr 03/18 completed Not Available Not Available Not Available baclofen 10 mg tablet TAKE 1 TABLET BY MOUTH ONCE DAILY NEEDED 04/24 completed Not Available Not Available Not Available triamcino lone acetonide 40 mg/mL suspensio n for injection Take 40 mg by injectio n route for 1 day. 03/22 completed Not Available Not Available Not Available neomycin- polymyxin -dexameth 3.5 mg/mL-10, 000 unit/mL-0 .1% eye drops 12/24 completed Not Available Not Available Not Available nystatin 100,000 unit/gram topical cream APPLY TO THE AFFECTED AREA TWICE DAILY 12/24 completed Not Available Not Available Not Available buspirone 10 mg tablet Take 1 tablet twice a day by oral route after meals for 30 days. 04/02 completed Not Available Not Available Not Available losartan 25 mg tablet TAKE ONE TABLET BY MOUTH ONCE DAILY 02/09 completed Not Available Not Available Not Available hydrochlo rothiazid e 12.5 mg capsule TAKE 1 CAPSULE BY MOUTH ONCE DAILY IN THE MORNING active Not Available Not Available No t Available hydroxyzi ne HCl 25 mg tablet TAKE 1 TABLET BY MOUTH THREE TIMES DAILY NEEDED active Not Available Not Available No t Available hydrochlo rothiazid e 25 mg tablet 02/09 completed Not Available Not Available Not Available estradiol 0.5 mg tablet TAKE ONE TABLET BY MOUTH ONCE DAILY active Not Available Not Available No t Available methylpre dnisolone 4 mg tablets in a dose pack 05/29 completed Not Available Not Available Not Available albuterol sulfate HFA 90 mcg/actua tion aerosol inhaler INHALE 2 PUFFS BY MOUTH 4 TIMES DAILY NEEDED active Not Available Not Available No t Available ketorolac 60 mg/2 mL intramusc ular solution Inject 2 mL as needed by intramus cular route for 1 day. 03/22 completed Not Available Not Available Not Available losartan 100 mg tablet TAKE 1 TABLET BY MOUTH ONCE DAILY IN THE MORNING active Not Available Not Available No t Available naproxen 500 mg tablet Take 1 tablet twice a day by oral route with meals for 30 days. 01/18 completed Not Available Not Available Not Available levothyro xine 112 mcg tablet TAKE 1 TABLET BY MOUTH ONCE DAILY IN THE MORNING active Not Available Not Available No t Available buspirone 15 mg tablet Take 1 tablet twice a day by oral route after meals for 30 days. 04/02 completed Not Available Not Available Not Available hydroxyzi ne pamoate 25 mg capsule TAKE ONE CAPSULE BY MOUTH THREE TIMES DAILY NEEDED 03/22 completed Not Available Not Available Not Available neomycin 3.5 mg/g-poly myxin B 10,000 unit/g-de xameth 0.1 % eye oint 12/24 completed Not Available Not Available Not Available Premarin 0.625 mg/gram vaginal cream INSERT 1 GRAM VAGINALL Y TWICE A WEEK 03/18 completed Not Available Not Available Not Available Alcohol Prep Pads APPLY 1 PAD TWICE DAILY TOPICALL Y active Not Available Not Available No t Available omega-3 acid ethyl esters 1 gram capsule TAKE 2 CAPSULES BY MOUTH TWICE DAILY AFTER A MEAL active Not Available Not Available No t Available Lyrica 50 mg capsule Take 1 capsule every day by oral route at bedtime for 14 days. 11/23 completed Not Available Not Available Not Available losartan 100 mg-hydroc hlorothia zide 12.5 mg tablet Take 1 tablet every day by oral route in the morning for 30 days. 04/19 completed Not Available Not Available Not Available calcium 600 mg (as carbonate )-vitamin D3 10 mcg (400 unit) tablet TAKE 1 TABLET BY MOUTH TWICE DAILY 2022 active Not Available Not Available Not Avai lable peg 3350 240 gram-elec trolytes 22.72 gram-6.72 g-5.84 g powdr for soln 01/18 completed Not Available Not Available Not Available diclofena c 1 % topical gel APPLY TWO GRAMS TOPICALL Y TO LUMBER,H IP AND NECK 4TIMES DAILY 04/02 completed Not Available Not Available Not Available Suprep Bowel Prep Kit 17.5 gram-3.13 gram-1.6 gram oral solution Take 354 mL by oral route for 1 day. 01/18 completed Not Available Not Available Not Available Centrum Silver 0.4 mg-300 mcg-250 mcg tablet active Not Available Not Available Not Available OneTouch Verio test strips CHECK GLUCOSE TWICE DAILY active Not Available Not Available No t Available Caltrate with Vitamin D3 600 mg-20 mcg (800 unit) tablet TAKE ONE TABLET BY MOUTH TWICE DAILY 12/24 completed Not Available Not Available Not Available lancets 30 gauge TEST TWO TIMES DAILY 03/18 completed Not Available Not Available Not Available Safety Seal Lancets 28 gauge 03/18 completed Not Available Not Available Not Available Aerospan 80 mcg/actua tion HFA aerosol inhaler 03/18 completed Not Available Not Available Not Available naloxone 4 mg/actuat ion nasal spray CALL 911. ADMINIST ER A SINGLE SPRAY INTRANAS ALLY INTO ONE NOSTRIL UPON SIGNS OF OPIOID OVERDOSE . MAY REPEAT AFTER 3 MINUTES IF NO RESPONSE . active Not Available Not Available No t Available OneTouch Verio Flex Meter USE DIRECTED 01/18 completed Not Available Not Available Not Available EC-Naprox en 500 mg tablet,de layed release TAKE 1 TABLET BY MOUTH TWICE DAILY WITH MEALS 01/18 completed Not Available Not Available Not Available OneTouch Delica Plus Lancet 33 gauge DIRECTED active Not Available Not Available No t Available OneTouch Delica Plus Lancing Device kit 05/08 completed Not Available Not Available Not Available Tab-A-Vit e 400 mcg tablet TAKE 1 TABLET BY MOUTH ONCE DAILY 03/22 completed Not Available Not Available Not Available Vitals Date Recorded Body height Body mass index (BMI) Body weight Systolic blood pressure Diastolic blood pressure Provider Name and Address Organization Details Last Updated DateTime 04/24/2022 162.56 cm 35.5 kg/m2 28254.62 g 110 mm[Hg] 72 mm[Hg] Rose Taylor MA [facility] 3 14:29:37 Date Recorded Body height Body mass index (BMI) Body weight Heart rate Body temperature Oxygen saturation Oxygen saturation in Arterial blood by Pulse oximetry Systolic blood pressure Diastolic blood pressure Provider Name and Address Organization Details Last Updated DateTime 3 162.56 cm 35.7 kg/m2 91651.2 1 g 83 /min 98.3 [degF] 93 % 93 % 110 mm[Hg] 80 mm[Hg] Caro Mariee MA [facility] 3 14:34:36 Date Recorded Body height Body mass index (BMI) Body weight Systolic blood pressure Diastolic blood pressure Provider Name and Address Organization Details Last Updated DateTime 06/03/2023 162.56 cm 36.6 kg/m2 28901.17 g 136 mm[Hg] 82 mm[Hg] Amy Salgado MA [facility] 4 12:00:36 Date Recorded Body height Body mass index (BMI) Body weight Body temperature Heart rate Oxygen saturation Oxygen saturation in Arterial blood by Pulse oximetry Systolic blood pressure Diastolic blood pressure Provider Name and Address Organization Details Last Updated DateTime 3 162.56 cm 35.7 kg/m2 40820.2 1 g 98.2 [degF] 86 /min 95 % 95 % 126 mm[Hg] 80 mm[Hg] Caro Mariee MA [facility] 3 15:33:02 Date Recorded Body height Provider Name an d Address Organization Details Last Updated DateTime 03/22/2022 162.56 cm Caro Mariee MA [facility] 2 09:08:26 Social History Question Answer Notes LastModified by Organizat ion Details LastModified Time Tobacco Smoking Status Former Smoker Li Koffi, [place] [facility], [place] - [facility] 03/18/2014 17:04:50 Do You Have An Advance Directive? No [email or web address] Information not available 09/07/2014 Are You Blind Or Do You Have Difficulty Seeing? No Information not available 03/18/2014 Is Blood Transfusion Acceptable In An Emergency? Yes Information not available 09/07/2014 What Is Your Level Of Caffeine Consumption? Moderate 1 Cup Of Coffee Information not available 05/29/2018 Are You A Caregiver? No Information not available 03/18/2014 How Much Tobacco Do You Chew? None Information not available 03/18/2014 Are You Deaf Or Do You Have Serious Difficulty Hearing? No Information not available 03/18/2014 What Type Of Diet Are You Following? REGULAR Information not available 03/18/2014 Do You Have A Directive To Physicians? No Information not available 03/18/2014 Which Illicit Or Recreational Drugs Have You Used? Former Marijuana Information not available 05/29/2018 Education 9 Information no t available 03/18/2014 Are There Any Guns Present In Your Home? Yes Information not available 03/18/2014 Hard Of Hearing Or Deaf In One Or Both Ears? No Information not available 03/18/2014 Legally Blind In One Or Both Eyes? No Information not available 03/18/2014 Live Alone Or With Others? With Others [email or web address] Information not available 09/07/2014 Marital Status Informatio n not available 03/18/2014 Do You Have A Medical Power Of Nitroglycerin Neutralizer? No Information not available 03/18/2014 What Was The Date Of Your Most Recent Tobacco Screening? 06/03/2023 Information not available 06/03/2023 How Many Children Do You Have? 3 [email or web address] Information not available 09/07/2014 Do You Have An Out Of Hospital DNR? No Information not available 03/18/2014 Performs Monthly Self-breast Exam? Yes Information not available 03/18/2014 Do You Use Protection During Sex? No Information not available 09/07/2014 What Is Your Relationship Status? Information not available 09/07/2014 Do You Use Your Seat Belt Or Car Seat Routinely? Yes Information not available 07/20/2020 Seat Belts Used Routinely Yes Information not available 03/18/2014 Are You Sexually Active? Yes [email or web address] Information not available 09/07/2014 Smoke Alarm In Home Yes Information not available 03/18/2014 Do You Have Smoke And Carbon Monoxide Detectors In Your Home? Yes Information not available 07/20/2020 At What Age Did You Start Smoking Tobacco? 15 Information not available 05/29/2018 Are You Passively Exposed To Smoke? No Information not available 07/20/2020 How Much Tobacco Do You Smoke? No Information not available 03/18/2014 General Stress Level Medium Information not available 05/29/2018 Do You Use Sunscreen Routinely? No Information not available 03/18/2014 Has Tobacco Cessation Counseling Been Provided? No Information not available 03/22/2022 On What Date Was Tobacco Cessation Counseling Provided? 06/03/2023 Information not available 06/03/2023 How Many Years Have You Smoked Tobacco? 40 Information not available 05/29/2018 Do You Have Difficulty Walking Or Climbing Stairs? No Information not available 03/18/2014 Sex: Female Functional Status Question Answer Note LastModified by Organizat ion Details LastModified Time Do you use any illicit or recreational drugs? No Information not available 07/20/2020 Do you or have you ever used any other forms of tobacco or nicotine? No Information not available 05/08/2022 What is your level of alcohol consumption? Occasional Information not available 03/18/2014 Do you or have you ever used smokeless tobacco? Never used smokeless tobacco Information not available 11/24/2019 Are you currently employed? No Information not available 09/07/2014 Do you have transportation difficulties? No Information not available 03/18/2014 Do you have difficulty doing errands alone? No Information not available 03/18/2014 Are you able to care for yourself? Yes Information n ot available 07/20/2020 What is your occupation? homemaker [email or web address] Information not available 09/07/2014 Do you have difficulty dressing or bathing? No Information not available 03/18/2014 Do you or have you ever used e-cigarettes or vape? Never used electronic cigarettes Information not available 11/24/2019 What is your exercise level? Moderate Information not available 05/29/2018 Mental Status Question Answer Note LastModified by Organizat ion Details LastModified Time Do you feel stressed (tense, restless, nervous, or anxious, or unable to sleep at night)? [id number] Information not available 07/20/2020 Do you have difficulty concentrating, remembering or making decisions? No Information no t available 03/18/2014 Family History Relationship Description Onset Age of this Age Resolved Age Notes LastModified by Organization Details LastModified Time Mother Depressive disorder [email or web address] Not available 02/03 16:44:26 Mother Diabetes mellitus [email or web address] Not available 02/03 16:44:26 Mother Hypercholest erolemia [email or web address] Not available 02/03 16:44:26 Mother Parkinsonism [email or web address] Not ryan ilable 02/03/2015 16:44:26 Father Malignant neoplasm of lung 69 [email or web address] Not available 2018 14:45:41 Father Type 2 diabetes mellitus 69 [email or web address] Not available 2018 14:45:59 Brother Heart disease [email or web address] Not available 2018 14:46:24 Notes:Mother at 80 years of age, unknown cause Medical History Condition Response Coronary Artery Disease N Kidney Cyst N Blood Diseases N Hyperthyroidism N Blood disorders N Blood Transfusion N MRSA N Emphysema N Depression N COPD N Blood Clots N Pneumonia N Premature N Peripheral Arterial Disease N Edema N TIA N Headaches/Migraines N Anxiety Disorder N Obesity Y Polyps N Infertility N Acid Reflux (GERD) N Hematuria N Stroke N Neck Injury Y Polio N Hospital Admission other than N Neurologic Disorder N Other Sleep Disorders N Rheumatoid Arthritis N Fibromyalgia N Abdominal Aortic Aneurysm Repair N Kidney Disease N Heart Conditions N Heart Disease/Heart Problems N Hospitalizations N Brain Tumors N Acne N Skin Problems N Eating Disorder N Meningitis N Constipation N Tuberculosis N Cerebral Palsy N Myocardial Infarction N Asthma N Substance Abuse N Peripheral Vascular Disease N Vertigo N Sleep Disorder N Cirrhosis N Pulmonary Embolism N Chicken Pox Y Hematologic Disease N Flomax Use Past or Present N Anxiety/Depression Y Thyroid Disease Y Colon Cancer N Lung Disease N Glaucoma N Developmental or Behavioral Disorders N Bipolar N Pacemaker N Diverticulitis/Diverticulosis N Orthopedic Problems N Anesthesia Complications N Orthotics N Head Injury/Concussion N Congenital Anomalies N Christiansen Bite N Chronic Kidney Disease N Endometriosis N Liver Disease Y Schizophrenia N Dialysis N Speech Delay N Chronic Obstructive Pulmonary Disease N Parkinson's Disease N Thyroid Problems N GI Problems N Developmental Delay N Anemia N Multiple Sclerosis N Immune System Disorder N Colon Polyps N Heart Attack (OR) N Diabetes Y Cardiomyopathy N Blood Transfusions N Heart Problems/Murmur N Eye Trauma N Congestive Heart Failure (CHF) N Valvular Heart Disease N Hyperlipidemia N Double Vision N Abuse/Domestic Violence N Hepatitis B N Lupus N Epilepsy/Seizures N Reflux/GERD N Aneurysm N Heart Disease N Bronchitis N Pre-Eclampsia N Hypertension Y Heart Failure N Other N Gout N High Blood Pressure N Atrial Fibrillation N Kidney Stones N Head Trauma/Injury N Congenital Heart Disease N Spine Problems Y Gastrointestinal Disease N Lung Mass N Sinusitis Y Obstructive Sleep Apnea N Muscle, Joint, or Bone Problems N Autoimmune disease N Vision or Eye Problems Y Arthritis Y Blood Clot N Cancer N Seasonal allergies Y Leg or Foot Ulcers N Raynaud's Disease N Aortic Aneurysm N Arrhythmia N Headaches Y Heart Problems N Ambloypia N Ear or Hearing Problems N Hyperparathyroidism N Migraines N Artificial Joints N Kidney or Bladder Problems N Encephalitis N PTSD N Ulcers N Prostate Hypertrophy N Bleeding Disorder N AIDS/HIV N Urinary Tract Infection Y Back Problems N Allergies N Atrial Flutter N GERD/Reflux N Hepatitis N Autism Spectrum Disorder (ASD) N Breast Cancer N Hernia N Hypothyroidism Y Breast Problem N Genitourinary Disease N Deep Vein Thrombosis N Varicose Veins Y Cystic Fibrosis N Hearing Loss N Developmental Problems N Carotid Disease N Vitamin D Deficiency N ADHD N Bladder or Kidney Problems N High Cholesterol N [place] Y Valvular Abnormalities N Psychiatric/Mental Health Condition N Organ Transplant N Foot Deformity N Allergies/Hayfever N Dyslipidemia N Hyponatremia N Diabetic Eye Disease Y Osteoporosis/Osteopenia N Back Pain N Proteinuria N Mental Illness N Neurological Problems N Ovarian Cancer N Bedwetting N Seizures/Epilepsy N Kidney Failure N Ocular trauma N Diverticulitis N Dementia N Sleep Apnea Y Mental Problems N Warfarin Management N Osteoporosis N Gynecological History Statement/Question Response Abnormal Pap N On BCP's at Conception? N STIs/STDs N HPV Vaccine N Duration of Flow (days) Most Recent Mammogram 02/06/2016 Age at Menarche 15 Current Control Method Tubal Ligat ion Age at First Child 19 If Post Menopausal, Age at Menopause 47 Frequency of Cycle (Q days) Sexually Active? Y Date of Last Pap Smear 09/06/2014 Sexual Problems? N LMP Desired Control Method None Obstetrics History GPAL:G 3 P 3 0 0 3 Type Value Multiple Births 0 Full Term 3 Induced 0 Spontaneous 0 Premature 0 Living 3 Ectopics 0 Total 3 Immunizations Vaccine Type Date Status Note Provider Nam e and Address Organization Details Recorded Time Influenza, split virus, quadrivalent, preservative 0 completed Not Available [facility] 04/02/2023 13:53:51 COVID-19 vaccine, vector-nr, [id number], PF, 0.5 mL 1 completed Not Available [facility] 04/02/2023 13:53:51 Influenza, split virus, quadrivalent, preservative 6 completed Not Available [facility] 04/18/2019 02:47:19 Influenza, split virus, quadrivalent, preservative 7 completed Not Available [facility] 04/18/2019 02:51:06 Influenza, split virus, quadrivalent, PF 8 completed Not Available [facility] 04/18/2019 02:36:29 Influenza, split virus, quadrivalent, preservative 9 completed Not Available [facility] 04/18/2019 02:38:09 Tdap 0 completed Ashley Zapata MA null, [place] - [place] 06/09/2019 16:45:30 Influenza, split virus, quadrivalent, preservative 6 completed Not Available [facility] 04/02/2023 13:53:51 Influenza, split virus, quadrivalent, preservative 5 completed Not Available [facility] 04/18/2019 02:32:09 Influenza, split virus, trivalent, preservative 4 completed Not Available [facility] 04/18/2019 02:48:34 Past Encounters Encounter ID Performer Location Encounter Start Date Encounter Closed Date Diagnosis/Indication Diagnosis SNOMED-CT Code Diagnosis ICD10 Code Diagnosis Note [id number] MD Robby Colorado (Adult Med) [address] [place] [address] [id number] 0 03/18/2014 15:33:20 03/18/2014 18:02:56 Chronic obstructive pulmonary disease 06457574 Obesity 143182544 Tobacco user 365464236 Pain on mo vement of cervical spine 801362582 Active or passive immunization 537628018 Acute urin thad tract infection 852435968 [id number] JAYSON Akers (Adult Med) [address] [place] [address] [id number] 0 05/20/2014 16:32:11 05/20/2014 17:15:52 Pain on movement of cervical spine 406384318 Chronic ob structive pulmonary disease 06627796 Obesity 507113856 Tobacco user 284782408 [id number] JAYSON Akers (Adult Med) [address] [place] [address] [id number] 0 07/20/2014 16:01:42 07/20/2014 16:52:48 Pain on movement of cervical spine 803736590 Essential hypertension 56683172 Hypothyroidism 80674926 [id number] MD Robby Murray (EXPLOSIVE ORDNANCE SPECIALIST) [address] [place] [address] [phone] 0 09/07/2014 15:27:56 09/07/2014 17:36:25 Gynecologic examination 62313054 Screening for malignant neoplasm of breast 086027692 [id number] MD Robby Colorado (Adult Med) [address] [place] [address] [phone] 0 09/21/2014 15:03:24 09/21/2014 15:38:57 Pain on movement of cervical spine 229372638 Essential hypertension 76531618 Hypothyroidism 07725887 Obesity 275132310 Tobacco user 160080210 Anxiety 98196990 [id number] JAYSON Akers (Adult Med) [address] [place] [address] [id number] 0 12/27/2014 15:50:04 12/27/2014 16:28:50 Pain on movement of cervical spine 247434918 Anxiety 60335996 Chronic ob structive pulmonary disease 99177139 Essential hypertension 90793102 Hypothyroidism 38410732 Active or passive immunization 847249571 Obesity 968830151 Tobacco user 461698884 Insomnia 004211950 [id number] MD Robby Murray (EXPLOSIVE ORDNANCE SPECIALIST) [address] [place] [address] [phone] 0 02/03/2015 15:00:54 02/03/2015 16:18:26 Urethritis 58320406 N34.2 Menopausal symptom 95669 002 N95.1 [id number] JAYSON Akers (Adult Med) [address] [place] [address] [id number] 0 02/22/2015 14:43:47 02/22/2015 16:49:16 Anxiety 09867839 F41.9 Pain on mo vement of cervical spine 658877734 M54.2 Chronic ob structive pulmonary disease 09098585 J44.9 Essential hypertension 00414044 I10 Hypothyroidism 91339481 E03.9 Insomnia 930579043 G47.0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 Method Maternal HG B and HCT Levels Ob Episode Information Episode Created Date Number of Fetuses Patient Bloodtype Patient rh Status Prepregnancy Weight lbs Domestic Partner Domestic Partner Phone Father Name Supervisor Net Making Status 09/08/19 15 1 CLOSED Fetus Data First Name Last Name Admitted to NICU Weight (g) Sex Living Outcome Pediatric Complications Fetus ID Race Codes Race Delivery Type 2921.13 248 M Full Term [id number] Vaginal Samuel Calculation Initial Samuel Date Initial Exam Date Initial Exam Provider Initial Ultrasound Date Last Menstrual Period Date Ultra Sound Weeks Gestation 0 Eighteen To Twenty Week Samuel Update Ultra Sound Date Fundal Height At Umbil Quickening Date Ultra Sound Latest Weeks Gestation Final Samuel Confirmed By Final Samuel Confirmed Date Final Samuel Date Ultra Sound Latest Days Gestation 0 0 Menstrual History Last Menstrual Date Menses Monthly On Bcp Conception Prior Menses Frequency Hcg Plus Date Menarche Onset Age Delivery Information Delivery Date Delivery Type Labor Anesthesia Weeks Gestation Incision Type Labor Labor Length Hrs Delivered By Post Complications Tubal Sterilization Discharge Date Comments 5 None [address] in [place] Discharge Information Feeding Method Contraceptive Method Maternal HG B and HCT Levels Ob Episode Information Episode Created Date Number of Fetuses Patient Bloodtype Patient rh Status Prepregnancy Weight lbs Domestic Partner Domestic Partner Phone Father Name Supervisor Net Making Status 09/08/19 15 1 CLOSED Fetus Data First Name Last Name Admitted to NICU Weight (g) Sex Living Outcome Pediatric Complications Fetus ID Race Codes Race Delivery Type 3315.75 752 M Full Term [id number] Vaginal Samuel Calculation Initial Samuel Date Initial Exam Date Initial Exam Provider Initial Ultrasound Date Last Menstrual Period Date Ultra Sound Weeks Gestation 0 Eighteen To Twenty Week Samuel Update Ultra Sound Date Fundal Height At Umbil Quickening Date Ultra Sound Latest Weeks Gestation Final Samuel Confirmed By Final Samuel Confirmed Date Final Samuel Date Ultra Sound Latest Days Gestation 0 0 Menstrual History Last Menstrual Date Menses Monthly On Bcp Conception Prior Menses Frequency Hcg Plus Date Menarche Onset Age Delivery Information Delivery Date Delivery Type Labor Anesthesia Weeks Gestation Incision Type Labor Labor Length Hrs Delivered By Post Complications Tubal Sterilization Discharge Date Comments 6 None 40 [facility] Discharge Information Feeding Method Contraceptive Method Maternal HG B and HCT Levels
--- OUTSIDE RECORDS SUMMARY | 2024-09-16 10:16 | XMS_ITS | Data Portability ---
Author Organization [facility] [employer], Main Office Address [address] [place] [address] Assessment No assessment recorded. Plan of Treatment Reminders Order Date Submit Date Provider Last Modified By Organization Details Last Modified Time Details Appointments None recorded. Lab hemoglobin A1C, fingerstick 2024 025 [facility], [address] [place] [address], [address], 5 15:54:06 glycohemogl obin, total, blood 2023 024 [place] [address] 2 [facility] (Lab), [address] [place], [address], 4 08:57:40 TSH, serum or plasma 2023 024 [place] [address] 2 [facility] (Lab), [address] [place], [address], 4 08:57:40 T4, free, serum 2023 024 [place] [address] 2 [facility] (Lab), [address] [place], [address], 4 08:57:40 T3, free, serum or plasma 2023 024 [email or web address] 2 [facility] (Lab), [address] [place], [address], 4 08:57:40 microalbumi n/creatinin e, mass ratio, urine 2023 024 pepe 200 [facility] [address], [place], [address], 4 17:24:04 glycohemogl obin, total, blood 2023 024 [email or web address] 2 [facility] (Lab), [address] [place], [address], 4 08:39:26 glycohemogl obin, total, blood 2023 024 [facility] (Lab), [address] [place], [address], 4 23:31:32 Referral None recorded. Procedures None recorded. Surgeries None recorded. Imaging MAMMO, screening, digital, bilateral [address] [facility], [address], [address], [place], [address], 4 08:55:05 DEXA, axial skeleton [address], [address], [place], [address], 4 08:55:05 Medication Orders hydrocodone 5 mg-acetamin ophen 325 mg tablet 2024 025 [facility], [address] [facility], [place], [address], 5 14:40:44 Mounjaro 2.5 mg/0.5 mL subcutaneou s pen injector 2024 025 4 [facility], [address] [facility], [place], [address], 5 16:44:27 Depo-Medrol 80 mg/mL suspension for injection 2024 025 [email or web address] 3 Not available 5 09:35:45 prednisone 20 mg tablet 2023 024 [facility], [address] [place], [address], 4 14:54:30 Depo-Medrol 80 mg/mL suspension for injection 2023 024 [email or web address] Not available 4 08:12:37 Breztri Aerosphere 160 mcg-9mcg-4. 8mcg/actuat ion HFA aerosol inhaler 2023 024 [facility], [address] [place], [address], 4 14:47:50 Januvia 100 mg tablet 2023 024 [facility] 200 [facility], [address] [place] [address], [address], 5 14:59:46 Depo-Medrol 80 mg/mL suspension for injection 2023 024 [email or web address] 200 Not available 4 16:09:54 Depo-Medrol 80 mg/mL suspension for injection 2023 024 [email or web address] Not available 4 14:28:26 Patient TargetsNo targets recorded. Patient Instructions Encounter Date Encounter Id Patient Instructions Last Modified By Organization Details Last Modified Time 09/03/2023 [id number] recheck BP on own [email or web address] Not avai lable 09/24/2023 10:43:10 03/09/2024 [id number] dementia rating scale-2* [email or web address] Not available 03/09/2024 14:46:23 depression screening* [email or web address] Not available 03/09/2024 14:46:23 alcohol misuse* [email or web address] Not availab le 03/09/2024 14:46:23 multi-dimensiona l health assessment questionnaire* Not available 03/09/2024 14:46:23 Personalized Hea lt Plan and Screening Recommendations Advance Directives - Do you have one? No I have no recommendations Advance Directives - Do we have your advance directive on file in your health record? I have no recommendations Primary Prevention/Interven tion (prevents or decreases the chance of common diseases from occurring) Smoking Risk: Non Smoker I have no recommendations Alcohol Misuse Screening: Negative I have no recommendations Weight: Overweight try to lose 10% of your body weight Physical activity: Need more exercise/physical activity minimum of 20-30 minutes activity that causes mild breathlessness/day Nutrition: Average Eat Heart Healthy Diet Fall Risk (screened today): Low I have no recommendations Vaccines Pneumococcal: No further needed Influenza: Your next one in the fall of this year Chronic Disease Risks Stroke: Intermediate Risk Active diagnosis, Continue current treatment plan Heart Attack: Intermediate Risk Active diagnosis, Continue current treatment plan Clogging of the Arteries: Intermediate Risk Active diagnosis, Continue current treatment plan Diabetes: Intermediate Risk Active diagnosis, Continue current treatment plan Secondary Prevention/Interven tion (detects treatable diseases before they may cause symptoms, disability, or ) Breast Cancer Screening with mammogram: No screening necessary Cervical/Uterine/Ov gadiel Cancer Screening: No screening necessary Osteoporosis Screening: Recommended today Date Screening Last Performed: Colon Cancer Screening: No screening necessary No screening necessary:Pt states due in 6 years Date Screening Last Performed: Eye Disease Screening: No Eye exam necessary Dementia Risk: Low I have no recommendations Depression Screening: Negative I have no recommendations Not available 03/09/2024 14:39:30 Reason for Referral None Reported. Results Created Date Observation Date Name Description Value Unit Range Abnormal Flag Note LastModifiedBy Organization Detail LastModifiedTime 12/04/1912/04/2023 micro album in/cr eatin ine, mass ratio , urine Unknown Analyte 80mg/L Not Available [facility] [address], [place], [address], 12/04/2023 15:26:50 12/04/1912/0312/04/2023 micro album in/cr eatin ine, mass ratio , urine Unknown Analyte 300mg/ dL Not Available [address], [place], [address], 12/04/2023 15:26:50 12/04/19 24 12/04/2023 micro album in/cr eatin ine, mass ratio , urine Unknown Analyte <30mg/ g Not Available [address], [place], [address], 12/04/2023 15:26:50 06/10/19 25 06/09/2024 hemog lobin A1C, finge rstic k HgbA1C 8.4 Not Available [address], [place], [address], 06/08/2024 14:37:10 Result Notes None recorded. Problems Name Problem SNOMED Code Status Onset Date Resolution Date Notes Provider Name and Address Organization Details Recorded Time Chronic low back pain 228399088 Active 2022 Not Available [facility] 4 07:41:26 Type 2 diabetes mellitus 82754994 Active 2022 Not Available [facility] 4 07:41:26 Anxiety 80478746 Active 2022 Not Available [facility] 4 07:41:26 Bilateral glaucoma 6990224992699 9101 Active 2022 Not Available [facility] 4 07:41:26 Hyperlipid emia 38881934 Active 2022 Not Available [facility] 4 07:41:26 Vitamin D below reference range 541781835 Active 2022 Not Available [facility] 4 07:41:26 Hypothyroi dism 86490121 Active 2022 Not Available [facility] 4 07:41:26 Essential hypertensi on 12691513 Active 2022 Not Available [facility] 4 07:41:26 Low back pain 772577183 Active 2023 Camelia Morfin RN [facility], [facility] 4 12:53:20 Chronic obstructiv e pulmonary disease 21437383 Active 2023 DIPESH Akers [address], [address], [place], [address] , [facility] 4 14:46:10 Screening mammograph y Active 2023 DIPESH Akers [address], [address], [place], [address] , [facility] 4 14:52:59 Screening for osteoporos is Active 2023 DIPESH Akers [address], [address], [place], [address] , [facility] 4 14:54:44 Postmenopa usal osteoporos is 227999567 Active 2024 FEDERICA Pineda [address], [address], [place], [address] , [facility] [employer] 5 09:48:47 Notes:Some problems listed i n Documents: #[id number], #[id number], #[id number], #[id number], #[id number] could not be added to this patient's chart. Please review these documents and add these problems to the patient's chart manually as needed. Problem Notes None recorded. Procedures Surgical History Date Name Laterality Status Provider Name and Address Organization Details Recorded Time 4 Medicare Wellness CPT Code, subsequent completed Camelia Morfin RN [facility] [employer] 03/09/2024 14:29:45 Tubal Ligation completed Jayshree Maldonado MA [facility] [facility] [employer] 09/24/2022 14:28:41 Imaging Results None recorded. Procedure Notes None recorded. Medical Equipment None Reported. Allergies No known drug allergies Medications Name Sig Start Date Stop Date Status Note LastModified by Organization Details LastModified Time cyclobenzap rine 10 mg tablet TAKE 1 TABLET BY MOUTH ONCE DAILY AT BEDTIME FOR 90 DAYS 2024 active Not Available Not Available Not Avai lable latanoprost 0.005 % eye drops INSTILL 1 DROP INTO EACH EYE AT BEDTIME active Not Available Not Available No t Available buspirone 5 mg tablet TAKE 1 TABLET BY MOUTH TWICE DAILY AFTER A MEAL 12/03 completed Not Available Not Available Not Available metformin 500 mg tablet Take 0.5 tablets twice a day by oral route before meal(s) for 90 days. active Not Available Not Available No t Available prednisone 10 mg tablet TAKE 4 TABLETS BY MOUTH DAILY FOR DAYS 1-3, THEN 3 TABLETS DAILY ON DAYS 4-5, THEN TAKE 2 TABLETS DAILY ON DAYS 6-7, THEN TAKE 1 TABLET DAILY ON DAY 8 09/24 completed Not Available Not Available Not Available atorvastati n 10 mg tablet TAKE 1 TABLET BY MOUTH ONCE DAILY AT NIGHT active Not Available Not Available No t Available Tab-A-Nitza tablet active Not Available Not Available Not Available azithromyci n 250 mg tablet 10/07 completed Not Available Not Available Not Available hydrocodone 5 mg-acetamin ophen 325 mg tablet Take 1 tablet twice a day by oral route as needed for 30 days. 2024 active Not Available Not Available Not Avai lable prednisone 20 mg tablet Take 2 tabs PO twice daily for 2 days; 1 tab PO twice daily for 5 days; 1/2 tab PO twice daily for 2 days; 1/2 tab PO once for 1 day. TAKE 2ND DOSE EVERYDAY AT NOON-10 DAY COURSE active Not Available Not Available No t Available triamcinolo ne acetonide 0.1 % topical cream active Not Available Not Available Not Available Depo-Medrol 80 mg/mL suspension for injection Take 1 mL by injection route for 1 day. 2024 active Not Available Not Available Not Avai lable levothyroxi ne 100 mcg tablet 06/02 completed Not Available Not Available Not Available baclofen 10 mg tablet TAKE 1 TABLET BY MOUTH ONCE DAILY NEEDED 06/02 completed Not Available Not Available Not Available neomycin-po lymyxin-dex ameth 3.5 mg/mL-10,00 0 unit/mL-0.1 % eye drops active Not Available Not Available Not Available nystatin 100,000 unit/gram topical cream 03/04 /2024 completed Not Available Not Available Not Available hydrochloro thiazide 12.5 mg capsule Take 1 capsule by mouth once daily in the morning 2024 active Not Available Not Available Not Avai lable hydroxyzine HCl 25 mg tablet Take 1 tablet by mouth three times daily as needed active Not Available Not Available No t Available methylpredn isolone 4 mg tablets in a dose pack 06/02 completed Not Available Not Available Not Available albuterol sulfate HFA 90 mcg/actuati on aerosol inhaler INHALE 2 PUFFS BY MOUTH 4 TIMES DAILY NEEDED active Not Available Not Available No t Available losartan 100 mg tablet Take 1 tablet every day by oral route in the morning for 90 days, for hypertens ion. active Not Available Not Available No t Available levothyroxi ne 112 mcg tablet TAKE 1 TABLET BY MOUTH ONCE DAILY IN THE MORNING 2024 active Not Available Not Available Not Avai lable hydroxyzine pamoate 25 mg capsule 06/02 completed Not Available Not Available Not Available neomycin 3.5 mg/g-polymy zoila B 10,000 unit/g-dexa meth 0.1 % eye oint 06/02 completed Not Available Not Available Not Available Alcohol Prep Pads APPLY 1 PAD TWICE DAILY TOPICALLY active Not Available Not Available No t Available omega-3 acid ethyl esters 1 gram capsule TAKE 2 CAPSULES BY MOUTH TWICE DAILY AFTER A MEAL 06/02 completed Not Available Not Available Not Available losartan 100 mg-hydrochl orothiazide 12.5 mg tablet 06/02 completed Not Available Not Available Not Available Januvia 100 mg tablet Take 1 tablet every day by oral route for 30 days. 06/08 completed Not Available Not Available Not Available Calcium with Vitamin D 600 mg-10 mcg (400 unit) tablet active Not Available Not Available Not Available OneTouch Verio test strips CHECK GLUCOSE TWICE DAILY active Not Available Not Available No t Available lancets 30 gauge active Not Available Not Available Not Available naloxone 4 mg/actuatio n nasal spray CALL 911. ADMINISTE R A SINGLE SPRAY INTRANASA LLY INTO ONE NOSTRIL UPON SIGNS OF OPIOID OVERDOSE. MAY REPEAT AFTER 3 MINUTES IF NO RESPONSE. active Not Available Not Available No t Available OneTouch Delica Plus Lancet 33 gauge DIRECTED active Not Available Not Available No t Available Breztri Aerosphere 160 mcg-9mcg-4. 8mcg/actuat ion HFA aerosol inhaler Inhale 2 puffs twice a day by inhalatio n route for 30 days. active Not Available Not Available No t Available Mounjaro 5 mg/0.5 mL subcutaneou s pen injector Inject 5 mg every week by subcutane ous route for 30 days. 2024 active Not Available Not Available Not Avai lable Mounjaro 2.5 mg/0.5 mL subcutaneou s pen injector INJECT 2.5MG SUB-Q EVERY WEEK active Not Available Not Available No t Available Vitals Date Recorded Body height Body mass index (BMI) Body weight Body temperature Heart rate Respiratory rate Oxygen saturation Oxygen saturation in Arterial blood by Pulse oximetry Systolic blood pressure Diastolic blood pressure Provider Name and Address Organization Details Last Updated DateTime 5 162.56 cm 37.3 kg/m2 68346.9 g 97.4 [degF] 92 /min 16 /min 95 % 95 % 130 mm[Hg] 80 mm[Hg] Sulema Valera [facility] [employer] 5 14:34:08 Date Recorded Body height Body mass index (BMI) Body weight Body temperature Heart rate Oxygen saturation Oxygen saturation in Arterial blood by Pulse oximetry Respiratory rate Systolic blood pressure Diastolic blood pressure Provider Name and Address Organization Details Last Updated DateTime 4 162.56 cm 36.6 kg/m2 66913.1 7 g 98.5 [degF] 93 /min 96 % 96 % 16 /min 148 mm[Hg] 96 mm[Hg] Camelia Morfin RN [facility] [employer] 4 14:12:49 Date Recorded Body height Body mass index (BMI) Body weight Body temperature Heart rate Oxygen saturation Oxygen saturation in Arterial blood by Pulse oximetry Respiratory rate Systolic blood pressure Diastolic blood pressure Provider Name and Address Organization Details Last Updated DateTime 4 162.56 cm 36 kg/m2 72615.4 g 98.3 [degF] 85 /min 98 % 98 % 16 /min 142 mm[Hg] 84 mm[Hg] Camelia Morfin RN [facility] [employer] 4 15:18:46 Date Recorded Body height Body mass index (BMI) Body weight Body temperature Heart rate Oxygen saturation Oxygen saturation in Arterial blood by Pulse oximetry Systolic blood pressure Diastolic blood pressure Provider Name and Address Organization Details Last Updated DateTime 4 162.56 cm 36.4 kg/m2 33771.5 8 g 98.7 [degF] 81 /min 94 % 94 % 146 mm[Hg] 90 mm[Hg] Camelia Morfin RN [facility] [employer] 14:34:28 Social History Question Answer Notes LastModified by [email or web address] Details LastModified Time Tobacco Smoking Status Former Smoker JULIA Avalos, [facility] 09/24/2022 14:28:24 What Is Your Level Of Caffeine Consumption? Occasional [email or web address] Information not available 09/24/2022 When Did You Quit Smoking? 11-15yearssince lastcigarette Information not available 09/24/2022 What Was The Date Of Your Most Recent Tobacco Screening? 03/09/2024 Information not available 03/09/2024 Do You Use Your Seat Belt Or Car Seat Routinely? Yes Information not available 09/24/2022 Do You Participate In Social Media? Yes [email or web address] Information not available 09/24/2022 Sex: Unknown Functional Status Question Answer Note LastModified by [email or web address] Details LastModified Time Do you use any illicit or recreational drugs? No [email or web address] Information not available 09/24/2022 What is your level of alcohol consumption? Moderate [email or web address] Information not available 09/24/2022 Mental Status Question Answer Note LastModified by Organization D etails LastModified Time Do you feel stressed (tense, restless, nervous, or anxious, or unable to sleep at night)? [id number] Information not available 09/24/2022 Family History Nothing Reported. Medical History No medical history recorded. Gynecological HistoryNo gynecological history recorded. Obstetrics History GPAL:G 0 P 0 0 0 0 Past Encounters Encounter ID Performer Location Encounter Start Date Encounter Closed Date Diagnosis/Indication Diagnosis SNOMED-CT Code Diagnosis ICD10 Code Diagnosis Note [id number] Misael Diaz MD [facility] [address] [facility] [place] [address] 09/24/2022 14:12:51 09/24/2022 14:42:59 Chronic low back pain 750529513 M54.50 Type 2 joyce betes mellitus 51113405 E11.9 Anxiety 67766522 F41.9 [id number] Misael Diaz MD [facility] [address] [place] [address] 10/26/2022 09:27:37 10/26/2022 09:52:57 Anxiety 90989706 F41.9 Bilateral glaucoma 75308 19455 7914083 H40.9 Chronic low back pain 27 1677497 M54.50 Type 2 joyce betes mellitus 48003833 E11.9 Hyperlipidemia 28374002 E78.5 Vitamin D below reference range 217690005 E55.9 [id number] Misael Diaz MD [facility] [address] [facility] [place] [address] 11/26/2022 13:51:05 11/26/2022 14:39:54 Bilateral glaucoma 7381315560 0974962 H40.9 Hyperlipidemia 33277842 E78.5 Type 2 joyce betes mellitus 46875751 E11.9 Vitamin D below reference range 517045402 E55.9 Chronic low back pain 27 2729097 M54.50 [id number] Misael Diaz MD [facility] [address] [facility] [place] [address] [address] [address] 02/28/2023 14:04:03 02/28/2023 15:17:23 Essential hypertension 84084862 I10 Chronic low back pain 27 0493114 M54.50 [id number] Misael Diaz MD [facility] [address] [facility] [place] [address] [address] [address] 06/03/2023 13:53:35 06/03/2023 14:22:58 Bilateral glaucoma 4195236650 6115135 H40.9 Anxiety 31908514 F41.9 Essential hypertension 70868231 I10 Hyperlipidemia 23956176 E78.5 Hypothyroidism 61925436 E03.9 Type 2 joyce betes mellitus 13562904 E11.9 Vitamin D below reference range 265745633 E55.9 Chronic low back pain 27 5935173 M54.50 Ex-smoker 1526979 Z87.89 1 [id number] [facility] [address] [place] [address] [place] [address] 09/03/2023 14:06:43 09/03/2023 14:26:55 Bilateral glaucoma 2861304374 8676828 H40.9 Essential hypertension 15082518 I10 Hyperlipidemia 27618475 E78.5 Hypothyroidism 94219093 E03.9 Type 2 joyce betes mellitus 87775276 E11.9 Vitamin D below reference range 500580224 E55.9 Chronic low back pain 27 7937649 M54.50 Anxiety 99849690 F41.9 [id number] Keith Denson MD [address] [place] [address] 10/31/2023 12:51:25 11/11/2023 11:57:54 Low back pain 219103569 M54.50 [id number] Keith Denson MD [address] [place] [address] 12/04/2023 14:31:55 12/04/2023 15:47:20 Type 2 diabetes mellitus 49061931 E11.9 Anxiety 79902295 F41.9 Bilateral glaucoma 09803 20744 8477745 H40.9 Chronic low back pain 27 5321894 M54.50 Essential hypertension 31463786 I10 Hyperlipidemia 98867381 E78.5 Hypothyroidism 85007280 E03.9 Vitamin D below reference range 107974713 E55.9 [id number] Keith Denson MD [address] [address] 03/09/2024 14:05:11 03/09/2024 15:01:11 Adult health examination 633458537 Z00.00 Screening for disorder 929052421 Z13.9 Chronic ob structive pulmonary disease 66908160 J44.9 Low back pain 309462083 M54.50 Chronic low back pain 27 4897066 M54.50 Screening mammography 24 243046 Z12.31 Screening for osteoporosis 461180669 Z13.820 Type 2 joyce betes mellitus 73188491 E11.9 Hypothyroidism 07061433 E03.9 Anxiety 44366729 F41.9 Bilateral glaucoma 22333 88819 2988315 H40.9 Essential hypertension 96887348 I10 Hyperlipidemia 92023757 E78.5 [id number] Keith Denson MD [facility] [address] [address] 06/08/2024 14:27:44 06/08/2024 16:52:08 Type 2 diabetes mellitus 55410253 E11.9 Low back pain 630016474 M54.50 Chronic low back pain 27 4310729 M54.50 Health Concerns Section Related Observation LastModified by Organization Detai ls LastModified Time None Recorded Concern Status LastModified by Organization Details LastModified Time None Recorded Advance Directives Directive None Recorded Payers Insurance Date Sequence Insurance Name Policy Number Policy Kim Covered Member ID Kim Member ID Guarantor Name 09/05/2024 2 [place] [employer] Dinora Darnell [id number] Dinora Tappel 09/05/2024 1 [facility] (MEDICARE REPLACEMENT/A DVANTAGE - PPO) [id number] Dinora Toney Tappel [id number] Dinora Tappel 10/31/2023 1 [facility] - DOS PRIOR TO 2020 (MEDICAID REPLACEMENT - HMO) Dinora Tappel [id number] Dinora Tappel Notes Date Note Type Note Provider Name and Address Organization Details Recorded Time 09/03/2023 text/html no changes , wants a depomedrol shot for back pain , it really helps DIPESH Akers [address], [place], [address], [facility] [employer] [facility] 09/24/2023 10:43:35 12/04/2023 text/html knot right forehead near hairline , non-tender DIPESH Akers [address], [place], [address], [employer] [facility] 12/17/2023 09:45:48 03/09/2024 text/html no changes . wants a shot for pain , as usual DIPESH Akers [address], [place], [address], [employer] 03/22/2024 17:58:36 06/08/2024 text/html no changes , could use a shot today , low back pain DIPESH Akers [address], [place], [address], [employer] 06/18/2024 12:40:31 OBGyn Episode No OBEpisode recorded.
--- OUTSIDE RECORDS SUMMARY | 2024-09-16 10:16 | XMS_ITS | Clinical Summary ---
Author Organization [facility] [employer] , [facility] Address [address] [address] Phone Care Team Providers Care Capsule Machine Operator Name Role Phone Jamilah Sapp MD Primary Care Provider [phone] Medications atorvastatin (LIPITOR) 10 MG tablet TAKE 1 TABLET BY MOUTH ONCE DAILY AT NIGHT 90 tablet 07/29/2024 Active Encounters Date Type Department Care Team Description 07/28/2024 Refill [facility], [facility] [address] [address] Octavio Heath DO from Last 3 Months Social History Tobacco Use Types Packs/Day Years Used Date Smoking Tobacco: Never Assessed Comments Unknown Sex and Gender Information Value Date Recorded Sex Assigned at Not on file Legal Sex Female 2:52 PM EDT Gender Identity Not on file Sexual Orientation Not on file Last Filed Vital Signs Vital Sign Reading Time Taken Comments Blood Pressure 120/70 10/01/2023 12:31 PM CDT Pulse 79 10/01/2023 12:31 PM CDT Temperature 36.1 C (97 F) 10/01/2023 12:31 PM CDT Respiratory Rate 18 10/01/2023 12:31 PM CDT Oxygen Saturation 98% 10/01/2023 12:31 PM CDT Inhaled Oxygen Concentration - - Weight 96.6 kg (213 lb) 10/01/2023 12:31 PM CDT Height 154.9 cm (5' 1) 03/27/2022 12:44 PM LIGHT CLEANER Body Mass Index 40.25 03/27/2022 12:44 PM LIGHT CLEANER Plan of Treatment Upcoming Encounters Date Type Department Care Team (Late st Contact Info) Description 10/06/2024 12:30 PM CDT Office Visit [facility], [facility] [address] [facility] [address] [place] [address] Octavio Heath DO [address] [facility] [address] [place] [address] Health Maintenance Due Date Last Done Comments Breast Cancer Screening 1955 Pneumococcal Vaccine: 50+ Ye ars (1 of 2 - PCV) 1976 Colorectal Cancer Screening: Annual FOBT 2006 Colorectal Cancer Screening: Colonoscopy 2006 Colorectal Cancer Screening: Sigmoidoscopy 2006 Hepatitis B Vaccine (1 of 3 - Risk 3-dose series) 2017 Diabetes: Hemoglobin A1C 08/25/2020 Diabetes: Ophthalmology Exam 08/25/2020 Diabetes: Pedal Pulse Checked 08/25/2020 Diabetes: Sensory Foot Exam 08/25/2020 Diabetes: Visual Foot Exam 08/25/2020 Influenza Vaccine (Season Ended) 2024 01/04/2021, 12/17/2019, 12/07/2019, [place] [phone] Care Teams Capsule Machine Operator Relationship Specialty Start Date End Date Jamilah Sapp MD [address] [place] [address] PCP - General Internal Medicine 03/27/22
== END 2024-09-16 09:24 | disposition home or self-care (01) ==
LOC: ANHIMG 09:26
PROVIDERS: PCP Physician Assistant
DX: Z12.31 Encounter for screening mammogram for malignant neoplasm of breast (principal); M81.0 Age-related osteoporosis without current pathological fracture; M85.88 Other specified disorders of bone density and structure, other site; M85.852 Other specified disorders of bone density and structure, left thigh; M85.851 Other specified disorders of bone density and structure, right thigh
CPT/HCPCS: 77063; 77067; 77080